=== PATIENT | male | born 1950 | race Caucasian/White ===

== ENCOUNTER 2018-05-10 02:00 | Outpatient (CLI) | payer MEDICARE, BC, SELFPAY ==
[2018-05-10 11:30] LABS: COMMENT (LAB VIEW ONLY) 64.47 mg/dL; Microalb ug/mg Crea 490.5 ug/mg Cr
== END 2018-05-10 02:20 ==
PROVIDERS: PCP Emergency Medicine; Visit Provider Emergency Medicine
DX: E78.5 Hyperlipidemia, unspecified (principal); E11.9 Type 2 diabetes mellitus without complications
CPT/HCPCS: 82043; 82570; 83036

== ENCOUNTER 2019-03-20 09:04 | Outpatient (CLI) | payer MEDICARE, BC, SELFPAY ==
[2019-03-20 11:13] LABS: Hemoglobin A1C 7.6 % (4.5-6.2)
[2019-03-21 10:30] LABS: PSA, Diagnostic 3.1 ng/ml (0-4.5)
== END 2019-03-20 09:24 ==
PROVIDERS: PCP Emergency Medicine; Visit Provider Emergency Medicine
DX: C61 Malignant neoplasm of prostate (principal); N13.8 Other obstructive and reflux uropathy; N40.1 Benign prostatic hyperplasia with lower urinary tract symptoms; E11.9 Type 2 diabetes mellitus without complications
CPT/HCPCS: 36415; 83036; 84153

== ENCOUNTER → 2019-03-29 13:16 | Outpatient (BNVA) | payer MEDICARE, BC, SELFPAY | PROVIDERS: PCP Emergency Medicine; Referring Provider Emergency Medicine; Visit Provider Nurse Practitioner Gerontology | DX: N40.1 Benign prostatic hyperplasia with lower urinary tract symptoms (principal); N13.8 Other obstructive and reflux uropathy; R39.11 Hesitancy of micturition; R33.9 Retention of urine, unspecified; E11.9 Type 2 diabetes mellitus without complications | CPT/HCPCS: 51798; 81003; 99204; 99215 ==

== ENCOUNTER 2019-04-03 00:24 | Outpatient (CLI) | payer MEDICARE, BC, SELFPAY ==
--- NOTE | 2019-04-03 07:02 | DI.US_ITS ---
SYMPTOMS/DIAGNOSIS: PROSTATE NODULE, RIGHT MID POSTERIOR LOBE, N40.2 ULTRASOUND GUIDANCE FOR PROSTATE BIOPSY: Ultrasound guidance was provided for prostate biopsy performed by Dr. Chaudhry. Please see Dr. Chaudhry's procedure note. Estimated prostatic volume is 38 cc.
--- NOTE | 2019-04-03 14:40 | PROST_PTH ---
PATIENT: Sanford Brownlee LOC: [facility] U#:[id number] AGE/SX: 69/M ROOM: RE04/03/[address]: Nikia Cristina DNP : 1950 BED: DIS: 04/03/2019 SPEC #: [id number] RECD: 04/03/19 17:11 STATUS: TORSTEN VELA #: [id number] JORDAN: 04/03/19 14:[address]: Ricardo Chaudhry DEPT: Surgical Specimen RECD BY: Homa Saenz ENTERED: 04/03/19 17:14 SP TYPE: PROST OTHR DR: DO Nikia Mccullough DNP Tissues: 1 - PROSTATE NEEDLE BIOPSY 2 - PROSTATE NEEDLE BIOPSY 3 - PROSTATE NEEDLE BIOPSY 4 - PROSTATE NEEDLE BIOPSY 5 - PROSTATE NEEDLE BIOPSY 6 - PROSTATE NEEDLE BIOPSY 7 - PROSTATE NEEDLE BIOPSY 8 - PROSTATE NEEDLE BIOPSY 9 - PROSTATE NEEDLE BIOPSY 10 - PROSTATE NEEDLE BIOPSY 11 - PROSTATE NEEDLE BIOPSY 12 - PROSTATE NEEDLE BIOPSY Procedures: GROSS AND MICRO LEVEL 4 IMMUNOPEROXIDASE STAIN Comments: [id number]
--- NOTE | 2019-04-03 16:17 | ROE_ITS ---
DATE OF PROCEDURE: April 03, 2019 PREPROCEDURE DIAGNOSIS: Prostate nodule. POSTPROCEDURE DIAGNOSIS: Prostate nodule with biopsies pending. PROCEDURE: Ultrasound-guided biopsy of the prostate. SURGEON: Ricardo Chaudhry M.D. ANESTHESIA: Local. COMPLICATIONS: None. HISTORY: This is a 69-year-old gentleman who was identified as having a nodule on the right side of his prostate when he underwent digital rectal exam. His PSA level is 3.1 ng/mL. He presents now for ultrasound-guided biopsy of the prostate. PROCEDURE: The patient was given a mechanical and antibiotic bowel prep. He was brought to the [facility] o[facility] on 04/03/19. He was placed in the left lateral position. Transrectal imaging of the prostate was performed using a variable hertz transducer. The prostate was imaged in transverse and longitudinal planes. The prostatic volume was calculated at 37 cc's. A number of calcifications were seen in the transiti on zone. No specific hypoechoic areas were seen in the peripheral zone. A total of twelve laterally-directed biopsies were then taken using ultrasound guidance. Each of the biopsies was labeled and sent to Pathology for permanent section. The patient tolerated this procedure well. There were no complications and minimal blood loss.
== END 2019-04-03 00:44 ==
PROVIDERS: PCP Emergency Medicine; Visit Provider Nurse Practitioner Gerontology
DX: N40.2 Nodular prostate without lower urinary tract symptoms (principal); C61 Malignant neoplasm of prostate
CPT/HCPCS: 55700; 76942; 76872; 88305; 88361

== ENCOUNTER → 2019-04-13 13:24 | Outpatient (BNVA) | payer MEDICARE, BC, SELFPAY | PROVIDERS: PCP Emergency Medicine; Visit Provider Urology | DX: C61 Malignant neoplasm of prostate (principal) | CPT/HCPCS: 99214 ==

== ENCOUNTER 2019-04-20 01:31 | Outpatient (CLI) | payer MEDICARE, BC, SELFPAY ==
--- NOTE | 2019-04-20 10:55 | DI.NM_ITS ---
EXAM: NM BONE SCAN WHOLE BODY GRP CLINICAL HISTORY: baseline study for new dx prostate cancer C61. TECHNIQUE: 25 millicuries of technetium 99 labeled methylene diphosphonate was injected intravenousl y with delayed imaging of the whole body. COMPARISON: No exams were available for comparison FINDINGS: There are a couple of areas of minimally increased uptake in the cervical spine, which could be assoc iated with degenerative change. Increased uptake also seen associated with sternoclavicular joints b ilaterally, presumably on a degenerative basis. No other significant area of increased bony uptake s een. IMPRESSION: No specific evidence of metastatic disease. Radiographs of the cervical spine may be obtained to conf irm cervical spine DJD if clinically appropriate.
== END 2019-04-20 01:51 ==
PROVIDERS: PCP Emergency Medicine; Visit Provider Urology
DX: C61 Malignant neoplasm of prostate (principal); Z12.89 Encounter for screening for malignant neoplasm of other sites
CPT/HCPCS: 78306

== ENCOUNTER → 2019-05-24 12:50 | Outpatient (BNVA) | payer MEDICARE, BC, SELFPAY | PROVIDERS: PCP Emergency Medicine; Referring Provider Emergency Medicine; Visit Provider Urology | DX: C61 Malignant neoplasm of prostate (principal) | CPT/HCPCS: 99214 ==

== ENCOUNTER 2020-01-02 22:25 | Outpatient (REF) | payer MEDICARE, BC, SELFPAY ==
[2020-01-04 10:12] LABS: Lyme Ab w Rflx to Lyme Confirm Negative (Negative)
[2020-01-08 15:17] LABS: Anaplasma phagocytophilum Negative (Negative); B. miyamotoi PCR Negative (Negative); Babesia divergens/MO-1 Negative (Negative); Babesia duncani Negative (Negative); Babesia microti Negative (Negative); Ehrlichia chaffeensis Negative (Negative); Ehrlichia ewingii/canis Negative (Negative); Ehrlichia muris eauclairensis Negative (Negative)
== END 2020-01-02 22:45 ==
LOC: LBN 22:25
PROVIDERS: PCP Emergency Medicine; Visit Provider Nurse Practitioner Family
DX: W57.XXXA Bitten or stung by nonvenomous insect and other nonvenomous arthropods, initial encounter (principal); T14.8XXA Other injury of unspecified body region, initial encounter
CPT/HCPCS: 87798; 86618

== ENCOUNTER 2020-01-30 03:09 | Outpatient (CLI) | payer MEDICARE, BC, SELFPAY ==
[2020-01-30 11:29] LABS: Hemoglobin A1C 7.6 % (3.8-5.6)
[2020-01-30 12:05] LABS: Anion Gap 6.7 mmol/L (3-11); BUN 46 mg/dL (7-18); CO2 27.3 mmol/L (21.0-32.0); Calcium 9.2 mg/dL (8.5-10.1); Chloride 109 mmol/L (98-107); Estimated GFR 31.38 (mL/min/1.73m2); Glucose 229 mg/dL (74-106); Sodium 143 mmol/L (136-145)
[2020-01-30 12:11] LABS: Potassium 6.4 mmol/L (3.5-5.1)
[2020-01-30 15:41] LABS: CREATININE 2.07 mg/dL (0.70-1.30); Potassium 5.4 mmol/L (3.5-5.1)
== END 2020-01-30 03:29 ==
PROVIDERS: PCP Emergency Medicine; Visit Provider Emergency Medicine
DX: E11.9 Type 2 diabetes mellitus without complications (principal); I10 Essential (primary) hypertension; E87.5 Hyperkalemia
CPT/HCPCS: 36415; 80048; 82565; 83036; 84132

== ENCOUNTER → 2020-02-06 10:43 | Outpatient (BNVA) | payer MEDICARE, BC, SELFPAY | PROVIDERS: PCP Emergency Medicine; Referring Provider Emergency Medicine; Visit Provider Orthopaedic Surgery | DX: M65.4 Radial styloid tenosynovitis [de Quervain] (principal); M25.532 Pain in left wrist | CPT/HCPCS: 99203; 99214; L3809 ==

== ENCOUNTER → 2020-03-05 09:23 | Outpatient (BNVA) | payer MEDICARE, BC, SELFPAY | PROVIDERS: PCP Emergency Medicine; Referring Provider Emergency Medicine; Visit Provider Orthopaedic Surgery | DX: M65.4 Radial styloid tenosynovitis [de Quervain] (principal) | CPT/HCPCS: 99213 ==

== ENCOUNTER 2020-08-13 19:36 | Outpatient (REF) | payer MEDICARE, SELFPAY ==
[2020-08-13 14:11] LABS: Anion Gap 9.7 mmol/L (3-11); BUN 42 mg/dL (7-18); CO2 23.3 mmol/L (21.0-32.0); CREATININE 2.24 mg/dL (0.70-1.30); Calcium 8.5 mg/dL (8.5-10.1); Chloride 106 mmol/L (98-107); Estimated GFR 29.13 (mL/min/1.73m2); Glucose 265 mg/dL (74-106); Potassium 5.1 mmol/L (3.5-5.1); Sodium 139 mmol/L (136-145)
[2020-08-13 14:36] LABS: Hemoglobin A1C 7.4 % (<5.7)
== END 2020-08-13 19:56 ==
LOC: LBN 19:36
PROVIDERS: PCP Emergency Medicine; Visit Provider Emergency Medicine
DX: E11.9 Type 2 diabetes mellitus without complications (principal); I10 Essential (primary) hypertension
CPT/HCPCS: 80048; 83036

== ENCOUNTER 2020-09-01 01:46 | Outpatient (CLI) | payer MEDICARE, SELFPAY ==
--- NOTE | 2020-09-01 07:30 | DI.US_ITS ---
EXAM: US RENAL CLINICAL HISTORY: CHRONIC KIDNEY DISEASE,STAGE 3,N18.30. TECHNIQUE: Kunz scale, color and spectral Doppler were used. COMPARISON: US ABDOMEN ULTRASOUND (P) from 03/28/2015 US US prostate biopsy from 04/03/2019 FINDINGS: Renal size in cm: Right: 10.9. Left: 10.3. Echogenicity: Normal. Hydronephrosis: No. Cyst or mass: There are 2 simple cysts seen in the left kidney. The larger measures 0.7 x 0.9 x 1.1 cm. The smaller measures 0.9 x 0.7 x 0.9 cm. Nephrolithiasis: There is an echogenic focus in the upper pole which may represent nonobstructing sto ne. Other findings: None. Bladder:There is diffuse bladder wall thickening. This may in part be due to the decreased distensio n. Other etiologies include chronic bladder outlet obstruction, inflammatory or infectious cystitis. Please correlate clinically. Ureteral jets: Right: Visualized and unremarkable. Left: Visualized and unremarkable. Prevoid vol:34 cc Postvoid vol:7 cc Prostate: 44 cc Renal color flow: Symmetric and within normal limits. IMPRESSION: 1. Two simple left renal cysts. 2. No hydronephrosis. Possible left nephrolithiasis. 3. Enlarged prostate gland. 4. Diffuse urinary bladder wall thickening as described above. While this may be due to underdistent ion, other etiologies including chronic bladder outlet obstruction, inflammatory or infectious cystit is may be considered. Please correlate clinically. DATA REPOSITORY:
== END 2020-09-01 01:47 | disposition home or self-care (01) ==
LOC: DI 01:46
PROVIDERS: PCP Emergency Medicine; Visit Provider Emergency Medicine
DX: N18.30 Chronic kidney disease, stage 3 unspecified (principal); N28.1 Cyst of kidney, acquired; N40.0 Benign prostatic hyperplasia without lower urinary tract symptoms
CPT/HCPCS: 76770

== ENCOUNTER 2020-09-01 02:43 | Outpatient (CLI) | payer MEDICARE, SELFPAY ==
[2020-09-01 11:03] LABS: Bilirubin Negative (Negative); Blood Trace-intact (Negative); Clarity Clear (Clear); Glucose Negative (Negative); Ketones Negative (Negative); Leukocyte Esterase Negative (Negative); Nitrite Negative (Negative); Specific Gravity >= 1.030 (1.005-1.025); Urobilinogen 0.2 EU/dL (Up TO 0.2); pH 5.5 (5-8)
[2020-09-01 11:06] LABS: C-Reactive Protein 0.84 mg/dL (0.0-0.3)
[2020-09-01 11:15] LABS: Bacteria Few HPF (Negative); C & S Indicated? Yes; Crystals Few Amorphous HPF (Negative); Epithelial Cells Negative HPF (Negative); Mucus Trace (Negative); Other Cells Rare Renal (Negative)
[2020-09-01 11:44] LABS: HCT 37.7 % (40.0-50.0); HGB 12.3 g/dL (13.5-17.5); MCH 31.3 pg (27.0-33.0); MCHC 32.6 % (32.0-36.0); MCV 95.9 fL (80-95); MPV 10.7 fL (8.0-11.0); Platelet Count 149 10^3/uL (130-400); RBC 3.93 10^6/uL (4.36-5.78); RDW 12.9 % (11.8-14.1); WBC 7.72 10^3/uL (4.4-10.8)
[2020-09-01 11:50] LABS: COMMENT (LAB VIEW ONLY) 182.01 mg/dL
[2020-09-01 18:14] LABS: ESR 28 mm/hr (<or=20)
== END 2020-09-01 02:44 | disposition home or self-care (01) ==
PROVIDERS: PCP Emergency Medicine; Visit Provider Emergency Medicine
DX: N18.30 Chronic kidney disease, stage 3 unspecified (principal); R30.0 Dysuria
CPT/HCPCS: 36415; 85027; 85652; 81003; 81015; 82043; 82570; 86140; 87086

== ENCOUNTER 2021-02-11 02:27 | Outpatient (CLI) | payer MEDICARE, SELFPAY ==
--- NOTE | 2021-02-11 09:11 | DI.RAD_ITS ---
Exam(s) XR CHEST 2V PA LATERAL EXAM: XR CHEST 2V PA LATERAL CLINICAL HISTORY: fatigue,r53.83. TECHNIQUE: 2D digital imaging was performed. COMPARISON: CR CHEST 2 VIEWS PA,LAT from 10/08/2015 FINDINGS: Heart size is normal. The mediastinum is not widened. Is calcified granuloma in the lateral left lung again noted, unchanged. Tenting of the medial right hemidiaphragm is unchanged. No infiltrates nor pleural effusions. No pneumothorax IMPRESSION: No acute pulmonary findings.Calcified granuloma in the left lung is unchanged from 2016. DATA REPOSITORY: RADIATION DOSE DELIVERED:
== END 2021-02-11 02:47 ==
PROVIDERS: PCP Emergency Medicine; Visit Provider Emergency Medicine
DX: J84.10 Pulmonary fibrosis, unspecified (principal); R53.83 Other fatigue
CPT/HCPCS: 71046

== ENCOUNTER 2021-02-11 02:58 | Outpatient (CLI) | payer MEDICARE, SELFPAY ==
[2021-02-11 12:51] LABS: Abs Immature Grans 0.03 10^3/uL (0.0-0.06); Absolute Basophil Count 0.08 10^3/uL (0.0-0.2); Absolute Lymphocyte Count 1.54 10^3/uL (1.2-3.4); Absolute Monocyte Count 0.52 10^3/uL (0.1-0.8); Absolute Neutrophil Count 4.29 10^3/uL (1.2-6.7); Basophils % 1.2; Eosinophils % 5.8; HCT 34.8 % (40.0-50.0); HGB 10.8 g/dL (13.5-17.5); Immature Grans % 0.4; Lymphocytes % 22.4; MCH 30.9 pg (27.0-33.0); MCV 99.7 fL (80-95); MPV 10.7 fL (8.0-11.0); Monocytes % 7.6; Neutrophils % 62.6; Nucleated RBC 0 %; Platelet Count 173 10^3/uL (130-400); RBC 3.49 10^6/uL (4.36-5.78); RDW 13.1 % (11.8-14.1); RDW-SD 47.4 fL; WBC 6.86 10^3/uL (4.4-10.8)
[2021-02-11 13:03] LABS: Hemoglobin A1C 7.9 % (<5.7)
[2021-02-11 13:24] LABS: ALT 33 U/L (16-63); AST 18 U/L (15-37); Albumin 3.3 g/dL (3.4-5.0); Alkaline Phosphatase 137 U/L (46-116); BUN 40 mg/dL (7-18); Bilirubin, Total 0.3 mg/dL (0.2-1.0); C-Reactive Protein 0.45 mg/dL (0.0-0.3); CREATININE 2.2 mg/dL (0.70-1.30); Calcium 8.6 mg/dL (8.5-10.1); Chloride 110 mmol/L (98-107); Estimated GFR 29.65 (mL/min/1.73m2); Glucose 200 mg/dL (74-106); Potassium 5.1 mmol/L (3.5-5.1); Sodium 145 mmol/L (136-145); TSH 1.43 uIU/mL (0.36-3.74); Total Protein 6.1 g/dL (6.4-8.2)
[2021-02-12 10:19] LABS: Lyme Ab w Rflx to Lyme Confirm Negative (Negative)
== END 2021-02-11 02:59 | disposition home or self-care (01) ==
LOC: LOS 02:58
PROVIDERS: PCP Emergency Medicine; Visit Provider Emergency Medicine
DX: R53.83 Other fatigue (principal); E11.9 Type 2 diabetes mellitus without complications; E03.9 Hypothyroidism, unspecified; M25.59 Pain in other specified joint
CPT/HCPCS: 36415; 80053; 83036; 84443; 85025; 86140; 86618

== ENCOUNTER 2021-02-13 11:46 | Outpatient (CLI) | payer MEDICARE, SELFPAY ==
[2021-02-13 16:43] LABS: Iron 59 ug/dL (65-175); Total Iron Binding Capacity 226 ug/dL (250-450); Transferrin Sat 26 % (20-55)
[2021-02-13 17:10] LABS: Ferritin 144 ng/mL (26-388); Vitamin B12 452 pg/mL (193-986)
[2021-02-13 17:14] LABS: Folate > 20.0 ng/mL (8.6-20.0)
== END 2021-02-13 11:47 | disposition home or self-care (01) ==
LOC: LBO 11:46
PROVIDERS: PCP Emergency Medicine; Visit Provider Emergency Medicine
DX: D64.9 Anemia, unspecified (principal)
CPT/HCPCS: 36415; 82607; 82728; 82746; 83540; 83550

== ENCOUNTER → 2021-03-17 07:59 | Outpatient (BNVA) | payer MEDICARE, SELFPAY | PROVIDERS: PCP Emergency Medicine; Referring Provider Emergency Medicine; Visit Provider Surgery | DX: R01.1 Cardiac murmur, unspecified (principal); R05 Cough; D50.9 Iron deficiency anemia, unspecified; Z86.010 Personal history of colon polyps; E11.22 Type 2 diabetes mellitus with diabetic chronic kidney disease; N18.2 Chronic kidney disease, stage 2 (mild); I10 Essential (primary) hypertension | CPT/HCPCS: 99203; 99214 ==

== ENCOUNTER 2021-04-07 07:42 | Outpatient (CLI) | payer MEDICARE, SELFPAY ==
[2021-04-07] MEDS: Albuterol HFA 18 GM 200 PUFF INH IH (14:15)
[2021-04-07] MEDS: Inhaler, Assist Device 1 EACH MC (14:16)
--- NOTE | 2021-04-08 09:56 | W.PFT ---
Date of service: 04/07/21 Time of Service: 12:58 Pulmonary Function Test Result Requesting Provider Duchene Indications: Chronic cough Interpretation Spirometry: There is no airflow limitation. There is a significant bronchodilator effect. Lung Volumes: Lung volumes are normal. Diffusion Capacity: The diffusion is normal. Airway Pressure: Airways resistance is normal. Impression Normal pulmonary function tests with a significant bronchodilator effect. Clinical Correlation therefore is recommended.
== END 2021-04-07 07:43 | disposition home or self-care (01) ==
LOC: RT 07:43
PROVIDERS: PCP Emergency Medicine; Visit Provider Student in an Organized Health Care Education/Training Program
DX: R05 Cough (principal)
CPT/HCPCS: 94060; 94726; 94729

== ENCOUNTER 2021-04-10 01:23 | Outpatient (CLI) | payer MEDICARE, SELFPAY ==
[2021-04-10 13:25] LABS: Source Nasal/Nares
[2021-04-10 16:55] LABS: COVID-19 PCR Negative (Negative)
== END 2021-04-10 01:24 | disposition home or self-care (01) ==
LOC: LBO 01:23
PROVIDERS: Surgery; PCP Emergency Medicine; Visit Provider Surgery
DX: Z20.822 Contact with and (suspected) exposure to COVID-19 (principal)
CPT/HCPCS: 87635

== ENCOUNTER 2021-04-13 06:15 | Day surgery (SDC) | payer MEDICARE, SELFPAY ==
[2021-04-13 06:21] VITALS: BP 164/72; PULSE 55; RESP 16; TEMP 36.1; O2SAT 97
--- NOTE | 2021-04-13 06:39 | W.COLOREPORT ---
Colonoscopy Report Date of procedure: 04/13/21 Pre-op diagnosis general: Anemia, Hx of polyps Post-op diagnosis procedure note: same (multiple polyps) Procedure: Colonoscopy with polypectomy Surgeon: Olamide Garvin Anesthesia Type: General:No Airway (Katie Urrutia, NELLI) Estimated blood loss (mL): 5 Pathology: other (Cecal polyps, ascending polyps, Transverse and descending polyps) Complications: None Disposition: same day Indications: Mr. Brownlee is a pleasant 71-year-old gentleman who was sent to the office by his primary care physician for a colonoscopy. His last colonoscopy was in 2014 and at that time he was noted to have 2 tubular adenomas. He was due for colonoscopy last year. He has not had any melena or hematochezia. He denies abdominal pain or family history of colon cancer. His stools are looser but that started after starting a liquid vitamin. He does feel fatigued and recent labs show that he is mildly anemic. He denies shortness of breath. He does complain of a chronic cough that has been persistent. He has had a chest x-ray which was normal. He states every time he takes a deep breath he now has a coughing fit it is mostly dry but sometimes he does bring up some clear sputum. His past medical history is significant for stage III kidney disease, diabetes, hypertension. His hypertension was well controlled but over the last month and a half it has not been as well controlled with his systolic blood pressure being up in the 170s. His diastolic pressure seems okay in the 70s. He denies any chest pain or shortness of breath with activity. Current symptoms: Reports fatigue; Denies hematochezia, melena, hematemesis or dyspnea Low iron diet: Yes Bleeding: no bleeding Amount of bleeding: none Pain quality: no pain Pertinent history: Reports iron deficiency; Denies NSAID usage, diverticulosis and unitentional weight loss Previous testing: colonoscopy (2014- tubular adenomas x2) Associated symptoms: Denies fever(s) Prep: Miralax/Dulcolax Procedure Start Time: 07:22 Procedure End Time: 08:11 Retraction Time: 39 minutes Findings: multiple sessile polyps Procedure Description: After informed consent was obtained the patient was taken to the procedure room and placed in a left decubitous position. Monitors were applied and a time out was done. The patients name, date of , procedure, allergies to medications and metal in their body was reviewed. The patient was then sedated. Once sedated and comfortable a rectal exam was done. External exam was normal. Internal exam revealed a normal sphincter tone and no palpable masses. The prostate felt enlarged but smooth. The scope was then introduced and retro-flexed. No internal hemorrhoids, polyps or masses were identified on retro-flexion. The scope was then advanced to the cecum without difficulty. The ileocecal vlave and appendiceal orifice were identified. The prep was adequate. The scope was then slowly retracted over 39 minutes back into the rectum. Polyps were removed with hot snare in the cecum x2, transverse polyp x1 and descending polyp x1, and with cold forceps in the cecum x1, Ascending polyps x3, transverse polyp x2. There was no diverticulosis noted. The scope was removed and the patient was woken up and taken back to Same day surgery in stable condition. The patient tolerated the procedure well and there were no immediate complications. Follow up: The patient should follow up in 3 years unless they develop changes in bowel habits or other new gastrointestinal complaints.
--- NOTE | 2021-04-13 06:40 | W.PM.DSUDISC ---
Discharge Plan Disposition Patient Disposition: HOME Condition: Good Discharge Details Reason For Visit: Colonoscopy Attending Provider: Olamide Garvin Primary Care Provider: Sergio Herring Home Meds and New Rx's Prescriptions: Continued (DME) lancets [FreeStyle Lancets] 28 gauge misc 1 ea Intradermal DAILY Qty: 90 RF: 4 losartan 50 mg tablet 100 mg PO DAILY Qty: 90 RF: 3 spironolactone 25 mg tablet 25 mg PO DAILY Qty: 90 RF: 3 tamsulosin 0.4 mg capsule 0.4 mg PO QHS RF: 0 albuterol sulfate [Ventolin HFA] 90 mcg/actuation HFA aerosol inhaler 2 puff inhalation QID PRN (Reason: shortness of breath or wheezing) Qty: 8.5 RF: 5 (DME) FreeStyle Lite Strips Strip 1 ea Miscellaneous DAILY Qty: 90 RF: 4 atorvastatin 40 mg tablet 40 mg PO DAILY Qty: 90 RF: 3 carbamazepine 100 mg tablet,chewable 50 mg PO BID Qty: 180 RF: 4 amlodipine 5 mg tablet 10 mg PO DAILY Qty: 90 RF: 3 Vitamin C 1,000 MG tablet extended release 1 tab PO DAILY RF: 0 Antacid Extra-Strength 1 EACH tablet 1 ea PO BID RF: 0 aspirin [Ecotrin Low Strength] 81 MG tablet,delayed release (DR/EC) 81 mg PO DAILY RF: 0 glimepiride 4 mg tablet 4 mg PO BID Qty: 180 RF: 3 alfuzosin 10 mg tablet extended release 24 hr 10 mg PO DAILY Qty: 90 RF: 3 metformin 500 mg tablet 500 mg PO BID Qty: 180 RF: 3 carbamazepine [Tegretol] 200 mg tablet 200 mg PO BID Qty: 180 RF: 4 Discontinued bisacodyl [Dulcolax (bisacodyl)] 5 mg tablet,delayed release (DR/EC) 5 mg PO ONCE Qty: 4 RF: 0 polyethylene glycol 3350 17 gram powder in packet 255 g PO DAILY Qty: 15 RF: 0 Discharge Instructions Instructions: Colorectal Polyps (DC) Additional Instructions: Findings: 11 polyps Follow up: 3 years Please call if you develop: fevers >101.5 Nausea or Vomiting Abdominal pain that is not transient Rectal bleeding that is more then a tbsp A hard abdomen and inability to pass gas DAY SURGERY UNIT POST ENDOSCOPY INSTRUCTIONS Instructions for everyone who is given Anesthesia: For your safety, please do the following for the next 24 Hours: a. Do not drive or operate dangerous equipment b. Do not drink alcohol beverages or use any recreational drugs for the first 24 hours or while taking pain medications. The medications in your body may have a reaction that can be dangerous. c. Do not make any important decisions or sign any important papers 1. Generally there are no restrictions on your activity after a day or so has gone by, but you may feel a bit fatigued for a few days. 2. After you arrive home you may have a light meal and return to a normal diet as you can tolerate it without feeling sick to your stomach. 3. After surgery, you may feel pain or discomfort. This should be only transient, but if it persists please contact your doctor. 4. If there are any questions regarding the findings of your procedure, please feel free to contact your doctor. 6. If you are unable to contact your doctor with a problem, contact the hospital at [phone]. 7. Continue all your regular medications unless directed otherwise. I understand the above instructions and have no questions. Signature of Patient or Responsible Adult Escort Date/Time Name of Responsible Adult Escort Signature of Nurse Date/Time Stand Alone Forms: Anesthesia Discharge Arlene Hdz (RACHAEL) Activity:: Activity as Tolerated Diet:: As Tolerated Discharge Orders Discharge Orders: Discharge Order (Routine); Ordered 04/13/21 Ordered By: Olamide Garvin
--- NOTE | 2021-04-13 06:53 | ANES.PREOP_ITS ---
General Info Date of Service Date Performed: 04/13/21 Height: 5 ft 5 in Weight: 87.5 kg Body Mass Index (BMI): 32.1 Surgical Procedure: Operation Date: 04/13/21 07:35 Proposed Procedures Side Surgeon p Colonoscopy Olamide Garvin MD Meds Allergies and Home Medications Allergies Allergy/AdvReac Type Severity Reaction Status Date / Time No Known Allergies Allergy Verified 04/13/21 06:31 Home Medication Medication Instructions Recorded Antacid Extra-Strength 1 ea PO BID 11/30/12 Vitamin C 1 tab PO DAILY 11/30/12 aspirin [Ecotrin Low Strength] 81 mg PO DAILY tab-cap 11/30/12 lancets 28 gauge #90 each 07/17/19 blood sugar diagnostic #90 strip 08/13/20 glimepiride 4 mg tablet 4 mg PO BID #180 tab 12/02/20 alfuzosin 10 mg tablet,extended 10 mg PO DAILY #90 tab-cap 01/14/21 release 24 hr metformin 500 mg tablet 500 mg PO BID #180 tab 01/14/21 carbamazepine 200 mg tablet 200 mg PO BID #180 tab 02/04/21 atorvastatin 40 mg tablet 40 mg PO DAILY #90 tab 02/10/21 carbamazepine 100 mg chewable 50 mg PO BID #180 tab-cap 02/10/21 tablet amlodipine 5 mg tablet 10 mg PO DAILY #90 tab 03/03/21 bisacodyl 5 mg tablet,delayed 5 mg PO ONCE #4 tab 03/31/21 release losartan 50 mg tablet 100 mg PO DAILY #90 tab 03/31/21 polyethylene glycol 3350 17 gram 255 g PO DAILY #15 ea 03/31/21 oral powder packet spironolactone 25 mg tablet 25 mg PO DAILY #90 tab 03/31/21 albuterol sulfate 90 mcg/actuation 2 puff INHALATION QID PRN #8.5 g 04/06/21 aerosol inhaler tamsulosin 0.4 mg capsule 0.4 mg PO QHS 04/06/21 Current Visit Medications: Current Medications Generic Name Dose Route Start Last Admin Trade Name Freq PRN Reason Stop Dose Admin Hyoscyamine Sulfate 0.125 mg 04/13/21 06:41 Hyoscyamine 0.125 Mg Sl/Oral/Chew SL DIRECTED PRN Sodium Chloride 1,000 mls @ 80 mls/hr 04/13/21 06:00 Saline 1000ml Bag IV INFUSION [facility] IV Miscellaneous Supplies 1 each 04/13/21 06:00 Iv Access IV 05/10/21 23:59 DIRECTED KENIA Ondansetron HCl 4 mg 04/13/21 06:41 Ondansetron 4 Mg/2 Ml Vial IVP Q4H PRN PRN Nausea / Vomiting Sodium Chloride 0 ml 04/13/21 06:00 Normal Saline Flush 10 Ml Syr IV 05/10/21 23:59 PRN PRN Sodium Chloride 0 ml 04/13/21 06:00 Normal Saline 10 Ml Vial IJ 05/10/21 23:59 DIRECTED PRN Sterile Water 0 ml 04/13/21 06:00 Water,Injection,Sterile 10 Ml Vial IJ 05/10/21 23:59 DIRECTED PRN PFSH Active Problems Active Problems: Problem Status Onset Code Incipient cataract 09/14/12 H26.9 Lumbago M54.5 Myopia 09/14/12 H52.10 Open angle with borderline findings 09/14/12 Renal insufficiency, mild N28.9 Status post laminectomy Z98.890 Newly recognized murmur R01.1 Persistent cough for 3 weeks or longer R05 Chronic cough R05 Chewing tobacco nicotine dependence F17.220 Trigger finger of left hand M65.30 Essential hypertension 07/31/13 I10 Type II diabetes mellitus, uncontrolled E11.65 Carpal tunnel syndrome 10/12/11 G56.00 Fatty pancreas 07/04/15 K86.89 Gout M10.9 Hyperlipidemia E78.5 Inguinal ring laxity K40.90 Kidney stone N20.0 Rosacea L71.9 Sciatica M54.30 Seizure disorder G40.909 Smoker F17.200 Spinal stenosis M48.00 Trigger finger, right index finger 01/19/17 M65.321 Tubular adenoma of colon D12.6 NPDR (nonproliferative diabetic retinopathy) ~11/08/18 E11.3299 Prostate nodule N40.2 BPH loc w urin obs/LUTS N40.1 Anemia D64.9 Fatigue R53.83 CKD (chronic kidney disease) stage 3, GFR 30-59 ml/min N18.30 De Quervain's tenosynovitis, left ~11/2019 M65.4 Left wrist pain M25.532 Prostate cancer C61 Medical History Medical History Anemia BPH loc w urin obs/LUTS Carpal tunnel syndrome (10/12/11) CKD (chronic kidney disease) stage 3, GFR 30-59 ml/min De Quervain's tenosynovitis, left (~11/2019) Essential hypertension (07/31/13) Fatigue Fatty pancreas (07/04/15) Gout Hyperlipidemia Inguinal ring laxity LEFT Kidney stone recurrently on the left at least 4 times. Last one 2004 Left wrist pain NPDR (nonproliferative diabetic retinopathy) (~11/08/18) 11/08/18 [facility]; MILD IN LEFT EYE-[facility] 11/24/20 [facility]; MILD B/L-KB Prostate cancer Prostate nodule Rosacea Sciatica Seizure disorder Pt. states he f/u with Dr. Herring hasn't had a seizure in 20+ years Smoker chews tobacco Spinal stenosis L5 disc and spinal stenosis Trigger finger of left hand Trigger finger, right index finger (01/19/17) Tubular adenoma of colon 08/09/14; DR. ROSARIO; TUBULAR ADENOMA X 2 Type II diabetes mellitus, uncontrolled Surgical History Surgical History Colonoscopy - [facility] 2003;2006;2014 laminectomy Tobacco Smoking/Tobacco Use Status: Former Tobacco Use Smokeless tobacco user: chewing tobacco Alcohol Alcohol Intake: never Substance Use Substance use: Never Substance use type: does not use Details: chews tobacco daily Vital Signs and Lab Results Vital Signs Most Recent Vital Signs in EMR: Most Recent Vital Signs Temp Pulse Resp BP Pulse Ox 36.1 C L 55 L 16 164/72 H 97 04/13/21 06:21 04/13/21 06:21 04/13/21 06:21 04/13/21 06:21 04/13/21 06:21 Lab Results Blood Type / Crossmatch: No Data to Display Complete Blood Count: No Data to Display Complete Metabolic Panel: No Data to Display Liver Function Panel: No Data to Display Coagulation Panel: No Data to Display Cardiac Panel: No Data to Display Arterial Blood Gas: No Data to Display Venous Blood Gas: No Data to Display Pancreas Panel: No Data to Display Thyroid Panel: No Data to Display Infectious Disease: Coronavirus (COVID-19)(PCR) Negative (Negative) 04/10/21 10:48 04/10/21 Coronavirus 2019 Source Nasal/Nares 04/10/21 10:48 04/10/21 Blood Cultures: No Data to Display Toxicology Panel: No Data to Display Imaging and Studies Imaging and Studies Pulmonary Function Summary: Impression Normal pulmonary function tests with a significant bronchodilator effect. Clinical Correlation therefore is recommended. 04/08/21 Anesthesia Assessment and Plan Anesthesia History Personal History: No History of Anesthesia Complications Family History: No Family History of Anesthesia Complications Exercise Tolerance Exercise Tolerance: Metabolic Equivalents>4 Pertinent Negatives Pertinent Negatives: No Symptoms of GERD, No Major Cardiovascular Symptoms or Complaints, No History of CVA/TIA and Other (Chronic cough, recently started inhalers) Cardiac & Pulmonary Exam Cardiac Exam: Normal S1/S2 Heart Sounds Pulmonary Exam: Clear Bilateral Breath Sounds Airway Exam Known Difficult Airway: No Mallampati Class: 1 Mouth Opening: Normal (> 3cm) Thyromental Distance: Greater than 3 cm Neck Range of Motion: Full ROM Neck Circumference: Normal Teeth Condition: Normal Dentition ASA Classification ASA Score: ASA 2 Emergency Case?: No NPO Status NPO Status: NPO Clears >2 hours, Solids >8 hours Anesthesia Plan Resuscitation Status: Full Code Anesthesia Technique: General Anesthesia Airway Planned: Natural Airway Monitors Used: Standard Monitors
[2021-04-13] MEDS: Normal Saline 1,000 ML 80 ML IV (06:54)
[2021-04-13 06:57] VITALS: BMI 32.1
--- NOTE | 2021-04-13 07:30 | BOWEL_PTH ---
PATIENT: Sanford Brownlee LOC: [facility] U#:[id number] AGE/SX: 71/M ROOM: RE04/13/[address]: Olamide Garvin MD : 1950 BED: DIS: 04/13/2021 SPEC #: [id number] RECD: 04/13/21 12:42 STATUS: TORSTEN RE #: [id number] JORDAN: 04/13/21 07:[address]: Olamide Garvin DEPT: Surgical Specimen RECD BY: Homa Saenz ENTERED: 04/13/21 12:44 SP TYPE: Bowel OTHR DR: Sergio Herring DO Tissues: 1 - BIOPSY BOWEL 2 - BIOPSY BOWEL 3 - BIOPSY BOWEL 4 - BIOPSY BOWEL Procedures: GROSS AND MICRO LEVEL 4 Comments: [id number]
[2021-04-13 08:22] VITALS: BP 132/58; PULSE 54; RESP 18; TEMP 36.4; O2SAT 96
--- NOTE | 2021-04-13 08:27 | W.ANESPOSTOP ---
Postoperative Evaluation Date, Time and Location Date Performed: 04/13/21 Time Performed: 08:22 Patient Location: Day Surgery Unit Vital Signs Most Recent Imported Vital Signs: Most Recent Vital Signs Temp Pulse Resp BP Pulse Ox 36.4 C L 54 L 18 132/58 L 96 04/13/21 08:22 04/13/21 08:22 04/13/21 08:22 04/13/21 08:22 04/13/21 08:22 Pain Score Most Recent Pain Score: Most Recent Pain Score Pain Level 0 04/13/21 08:22 Assessment Mental Status: Awake (Alert & Oriented to Patient Baseline) Airway and Respiratory Function: Patent airway with normal (patient baseline) respiratory exam Cardiovascular Function: Hemodynamically Stable Hydration Status: Adequately Hydrated Nausea & Vomiting: No Nausea or Vomiting Pain: Pt. Denies Any Pain Peripheral Nerve Block: Patient did not receive a nerve block
[2021-04-13 08:49] VITALS: BP 168/75; PULSE 50; RESP 16; TEMP 36.3; O2SAT 98
== END 2021-04-13 09:05 | disposition home or self-care (01) ==
PROVIDERS: PCP Emergency Medicine; Visit Provider Surgery
PROC: 0DJD8ZZ Inspection of Lower Intestinal Tract, Via Natural or Artificial Opening Endoscopic (ICD-10-PCS; CPT 45378; principal; 2021-04-13 07:30)
DX: Z12.11 Encounter for screening for malignant neoplasm of colon (principal); D64.9 Anemia, unspecified; D12.0 Benign neoplasm of cecum; D12.2 Benign neoplasm of ascending colon; D12.3 Benign neoplasm of transverse colon; D12.4 Benign neoplasm of descending colon; Z86.010 Personal history of colon polyps
CPT/HCPCS: 45385; 45380; 88305; J2001

== ENCOUNTER 2021-04-16 00:49 | Outpatient (CLI) | payer MEDICARE, SELFPAY ==
--- NOTE | 2021-04-16 06:45 | DI.CT_ITS ---
Exam(s) CT CHEST WO EXAM: CT CHEST WO CLINICAL HISTORY: chronic productive cough, concern FOR bronchiectasis,R05. TECHNIQUE: Multi planar reconstructions were performed. CONTRAST MATERIAL: None COMPARISON: CR CHEST 2 VIEWS PA,LAT from 03/27/2015 CR CHEST 2 VIEWS PA,LAT from 03/27/2015 CR XR CHEST 2V PA LATERAL from 02/11/2021 CR XR CHEST 2V PA LATERAL from 02/11/2021 FINDINGS: CHEST: LUNGS: No infiltrates nor pleural effusions. No ominous pulmonary nodules evident in either lung fie ld. The previously described granuloma in the lateral left lung actually corresponds to a focal none xpansile sclerotic density in the anterolateral aspect of the left 5th rib. No other focal rib findi ngs in the field of view of this study. No findings in the trachea and mainstem bronchi. No bronchi ectasis. MEDIASTINUM: There is no obvious hilar nor mediastinal adenopathy. Visualized thyroid unremarkable.No obvious axillary adenopathy CARDIAC: Heart size is normal. There is no pericardial effusion.Caliber of the thoracic aorta is wit hin normal limits. VISUALIZED UPPER ABDOMEN:Visualized adrenals unremarkable. The entire left adrenal gland is not incl uded in the field of view. In the partially visualized superior pole the right kidney there are 2 hy perdense nodules noted. Measure 9 millimeters. Possibly hemorrhagic cysts versus other pathology. Not completely included in the field of view. OSSEOUS: Mild anterior wedging of T12 noted. IMPRESSION: 1. No significant pulmonary findings. No pulmonary nodules, infiltrates nor pleural effusions. No i ntrathoracic adenopathy. 2. The nodule on the recent chest x-ray is actually not in the lateral left lung but corresponds to a nonexpansile sclerotic density in the left 5th rib. This most probably benign given that it was also present on chest x-ray of 2015. 3. Mild anterior wedging of T12 vertebral body is also unchanged from the lateral chest x-ray of 2015 . No acute osseous findings. RADIATION DOSE DELIVERED: 618.6mGy.cm Total DLP DATA REPOSITORY: All CT scans at this facility are submitted to the National Radiology Data Registry (NRDR) Dose Index Registry (DIR) with the [employer] ([employer]). RADIATION OPTIMIZATION: All CT scans at this facility use at least one of these dose optimization te chniques: automated exposure control; mA and/or kV adjustment per patient size (includes targeted exa ms where dose is matched to clinical indication); or iterative reconstruction.
== END 2021-04-16 01:09 ==
PROVIDERS: PCP Emergency Medicine; Visit Provider Student in an Organized Health Care Education/Training Program
DX: R05 Cough (principal)
CPT/HCPCS: 71250

== ENCOUNTER 2021-06-23 03:22 | Outpatient (CLI) | payer MEDICARE, SELFPAY ==
[2021-06-23 12:48] LABS: HCT 33.9 % (40.0-50.0); HGB 10.3 g/dL (13.5-17.5); MCH 30.7 pg (27.0-33.0); MCHC 30.4 % (32.0-36.0); MCV 100.9 fL (80-95); MPV 10.6 fL (8.0-11.0); Neutrophils % 57.7; Platelet Count 163 10^3/uL (130-400); RBC 3.36 10^6/uL (4.36-5.78); RDW-SD 48.2 fL; WBC 7.09 10^3/uL (4.4-10.8)
[2021-06-23 12:49] LABS: Abs Immature Grans 0.03 10^3/uL (0.0-0.06); Absolute Basophil Count 0.09 10^3/uL (0.0-0.2); Absolute Eosinophil Count 0.55 10^3/uL (0.0-0.7); Absolute Lymphocyte Count 1.84 10^3/uL (1.2-3.4); Absolute Monocyte Count 0.48 10^3/uL (0.1-0.8); Basophils % 1.3; Eosinophils % 7.8; Immature Grans % 0.4; Monocytes % 6.8; Nucleated RBC 0 %
[2021-06-23 12:58] LABS: ALT 32 U/L (16-63); AST 17 U/L (15-37); Albumin 3.3 g/dL (3.4-5.0); Alkaline Phosphatase 136 U/L (46-116); BUN 42 mg/dL (7-18); Bilirubin, Total 0.2 mg/dL (0.2-1.0); C-Reactive Protein 0.63 mg/dL (0.0-0.3); CREATININE 2.3 mg/dL (0.70-1.30); Calcium 8.9 mg/dL (8.5-10.1); Chloride 111 mmol/L (98-107); Estimated GFR 28.17 (mL/min/1.73m2); Glucose 116 mg/dL (74-106); Potassium 5.8 mmol/L (3.5-5.1); Sodium 144 mmol/L (136-145); Total Protein 6.1 g/dL (6.4-8.2)
[2021-06-23 13:16] LABS: Hemoglobin A1C 7.2 % (<5.7)
[2021-06-23 13:54] LABS: COMMENT (LAB VIEW ONLY) 87.12 mg/dL
[2021-06-23 22:52] LABS: PSA, Diagnostic 4.8 ng/mL (0.0-6.5)
== END 2021-06-23 03:23 | disposition home or self-care (01) ==
LOC: LOS 03:23
PROVIDERS: PCP Emergency Medicine; Visit Provider Emergency Medicine
DX: E11.9 Type 2 diabetes mellitus without complications; I10 Essential (primary) hypertension; N28.9 Disorder of kidney and ureter, unspecified; D50.9 Iron deficiency anemia, unspecified; C61 Malignant neoplasm of prostate
CPT/HCPCS: 36415; 80053; 82043; 82570; 83036; 84153; 85025; 86140

== ENCOUNTER 2021-06-30 02:49 | Outpatient (CLI) | payer MEDICARE, SELFPAY ==
[2021-06-30 09:58] LABS: Anion Gap 10.5 mmol/L (3-11); BUN 47 mg/dL (7-18); CO2 25.5 mmol/L (21.0-32.0); CREATININE 2.4 mg/dL (0.70-1.30); Calcium 8.9 mg/dL (8.5-10.1); Chloride 110 mmol/L (98-107); Estimated GFR 26.82 (mL/min/1.73m2); Glucose 121 mg/dL (74-106); Sodium 146 mmol/L (136-145)
== END 2021-06-30 02:50 | disposition home or self-care (01) ==
LOC: LBO 02:49
PROVIDERS: PCP Emergency Medicine; Visit Provider Emergency Medicine
DX: I10 Essential (primary) hypertension (principal)
CPT/HCPCS: 36415; 80048

== ENCOUNTER 2021-07-07 02:58 | Outpatient (CLI) | payer MEDICARE, SELFPAY ==
[2021-07-07 10:22] LABS: BUN 54 mg/dL (7-18); CREATININE 2.7 mg/dL (0.70-1.30); Calcium 8.8 mg/dL (8.5-10.1); Chloride 108 mmol/L (98-107); Estimated GFR 23.41 (mL/min/1.73m2); Glucose 146 mg/dL (74-106); Potassium 5.3 mmol/L (3.5-5.1); Sodium 144 mmol/L (136-145)
== END 2021-07-07 02:59 | disposition home or self-care (01) ==
LOC: LBO 02:58
PROVIDERS: PCP Emergency Medicine; Visit Provider Emergency Medicine
DX: I10 Essential (primary) hypertension (principal); E87.5 Hyperkalemia
CPT/HCPCS: 36415; 80048

== ENCOUNTER 2021-07-14 00:46 | Outpatient (CLI) | payer MEDICARE, SELFPAY ==
--- NOTE | 2021-07-14 06:30 | DI.US_ITS ---
Exam(s) US CAROTID EXAM: US CAROTID CLINICAL HISTORY: bruit,R09.89. TECHNIQUE: Ultrasound carotids performed using grayscale, color-flow, and spectral Doppler imaging. COMPARISON: No exams were available for comparison FINDINGS: RIGHT CAROTID ARTERY: Plaque: There is calcific plaque seen in the carotid bulb, proximal ECA and proximal ICA. Velocity elevation: Please see below. LEFT CAROTID ARTERY: Plaque: Calcific plaque is seen in the carotid bulb, proximal ECA and throughout the ICA. Velocity elevation: Please see below. VERTEBRAL ARTERIES: Antegrade flow. Measurements: R Bulb: 110.1cm/s PS / 14.8cm/s ED R CCA: 106.4cm/s PS / 16.7cm/s ED R ECA: 123.4cm/s PS / 12.9cm/s ED R ICA Prox: 145.2cm/s PS /29.6cm/s ED R ICA Mid: 122.1cm/s PS / 37.3cm/s ED R ICA Distal: 135.7cm/s PS /34.7cm/s ED R Vert: 47.6cm/s PS / 9.6cm/s ED R SVR: 1.36 R DVR: 1.77 L Bulb: 143.4cm/s PS /33.5cm/s ED L CCA: 76.8cm/s PS / 14.9cm/s ED L ECA: 208.2cm/s PS /19.8cm/s ED L ICA Prox:134.2cm/s PS / 35.9cm/s ED L ICA Mid: 144.6cm/sPS / 34.7cm/s ED L ICA Distal: 139.8cm/s PS / 34.6cm/s ED L Vert: 63.6cm/s PS / 17.4cm/s ED L SVR: 1.88 L DVR: 2.33 IMPRESSION: Findings of 50-69 percent ICA stenosis bilaterally. Criteria for Carotid Stenosis: Normal: ICA PSV <125 cm/s no plaque or intimal thickening is visible. <50% stenosis: ICA PSV <125 cm/s and plaque or intimal thickening is visible. 50-69% stenosis: ICA PSV is 125-250 cm/s and plaque is visible. >70% stenosis to near occlusion: ICA PSV >250 cm/s with visible plaque and luminal narrowing. DATA REPOSITORY:
== END 2021-07-14 01:06 ==
PROVIDERS: PCP Emergency Medicine; Visit Provider Emergency Medicine
DX: R09.89 Other specified symptoms and signs involving the circulatory and respiratory systems (principal); I65.23 Occlusion and stenosis of bilateral carotid arteries
CPT/HCPCS: 93880

== ENCOUNTER 2021-07-14 02:27 | Outpatient (CLI) | payer MEDICARE, SELFPAY ==
[2021-07-14 08:34] LABS: Anion Gap 5.9 mmol/L (3-11); BUN 63 mg/dL (7-18); CO2 27.1 mmol/L (21.0-32.0); CREATININE 2.8 mg/dL (0.70-1.30); Calcium 8.7 mg/dL (8.5-10.1); Chloride 109 mmol/L (98-107); Estimated GFR 22.45 (mL/min/1.73m2); Glucose 144 mg/dL (74-106); Potassium 5.7 mmol/L (3.5-5.1); Sodium 142 mmol/L (136-145)
== END 2021-07-14 02:28 | disposition home or self-care (01) ==
LOC: LBO 02:28
PROVIDERS: PCP Emergency Medicine; Visit Provider Emergency Medicine
DX: I10 Essential (primary) hypertension (principal); E87.5 Hyperkalemia
CPT/HCPCS: 36415; 80048

== ENCOUNTER 2021-07-21 15:33 | Outpatient (REF) | payer MEDICARE, SELFPAY ==
[2021-07-21 13:44] LABS: HCT 34.1 % (40.0-50.0); HGB 10.9 g/dL (13.5-17.5); MCH 31.1 pg (27.0-33.0); MCV 97.2 fL (80-95); Platelet Count 158 10^3/uL (130-400); RBC 3.51 10^6/uL (4.36-5.78); RDW 12.5 % (11.8-14.1); RDW-SD 44.7 fL; WBC 10.76 10^3/uL (4.4-10.8)
[2021-07-21 13:53] LABS: ALT 32 U/L (16-63); AST 16 U/L (15-37); Albumin 3.1 g/dL (3.4-5.0); Alkaline Phosphatase 139 U/L (46-116); BUN 49 mg/dL (7-18); Bilirubin, Total 0.3 mg/dL (0.2-1.0); CREATININE 2.8 mg/dL (0.70-1.30); Calcium 8.8 mg/dL (8.5-10.1); Chloride 105 mmol/L (98-107); Estimated GFR 22.45 (mL/min/1.73m2); Glucose 217 mg/dL (74-106); Potassium 4.7 mmol/L (3.5-5.1); Sodium 144 mmol/L (136-145); Total Protein 6.3 g/dL (6.4-8.2)
[2021-07-21 14:02] LABS: Iron 23 ug/dL (65-175); Total Iron Binding Capacity 208 ug/dL (250-450); Transferrin Sat 11 % (20-55)
== END 2021-07-21 15:34 | disposition home or self-care (01) ==
LOC: LBN 15:33
PROVIDERS: PCP Emergency Medicine; Visit Provider Emergency Medicine
DX: E87.5 Hyperkalemia (principal); I10 Essential (primary) hypertension; E11.65 Type 2 diabetes mellitus with hyperglycemia
CPT/HCPCS: 80053; 85027; 83540; 83550

== ENCOUNTER → 2021-08-18 08:22 | Outpatient (BNVA) | payer MEDICARE, SELFPAY | PROVIDERS: PCP Emergency Medicine; Referring Provider Emergency Medicine; Visit Provider Surgery | DX: D50.9 Iron deficiency anemia, unspecified (principal); N18.4 Chronic kidney disease, stage 4 (severe) | CPT/HCPCS: 99213 ==

== ENCOUNTER 2021-08-27 03:04 | Outpatient (CLI) | payer MEDICARE, SELFPAY ==
[2021-08-27 07:50] LABS: Abs Immature Grans 0.03 10^3/uL (0.0-0.06); Absolute Basophil Count 0.09 10^3/uL (0.0-0.2); Absolute Eosinophil Count 0.44 10^3/uL (0.0-0.7); Absolute Lymphocyte Count 2.02 10^3/uL (1.2-3.4); Absolute Monocyte Count 0.47 10^3/uL (0.1-0.8); Absolute Neutrophil Count 3.93 10^3/uL (1.2-6.7); Basophils % 1.3; Eosinophils % 6.3; HCT 33.4 % (40.0-50.0); HGB 10.6 g/dL (13.5-17.5); Immature Grans % 0.4; Lymphocytes % 28.9; MCH 30.7 pg (27.0-33.0); MCHC 31.7 % (32.0-36.0); MCV 96.8 fL (80-95); MPV 9.5 fL (8.0-11.0); Monocytes % 6.7; Neutrophils % 56.4; Nucleated RBC 0 %; Platelet Count 150 10^3/uL (130-400); RBC 3.45 10^6/uL (4.36-5.78); RDW 12.6 % (11.8-14.1); RDW-SD 44.7 fL; WBC 6.98 10^3/uL (4.4-10.8)
[2021-08-27 08:00] LABS: Anion Gap 9.7 mmol/L (3-11); BUN 55 mg/dL (7-18); CO2 24.3 mmol/L (21.0-32.0); CREATININE 2.4 mg/dL (0.70-1.30); Calcium 8.9 mg/dL (8.5-10.1); Chloride 107 mmol/L (98-107); Estimated GFR 26.82 (mL/min/1.73m2); Glucose 164 mg/dL (74-106); PHOSPHORUS 4.6 mg/dL (2.6-4.7); Potassium 4.8 mmol/L (3.5-5.1); Sodium 141 mmol/L (136-145)
[2021-08-27 09:09] LABS: Vitamin D 25 Total 45.3 ng/mL (30-100)
[2021-08-28 09:23] LABS: Parathyroid Hormone,Intact 82 pg/mL (19-88)
== END 2021-08-27 03:05 | disposition home or self-care (01) ==
LOC: LBO 03:05
PROVIDERS: PCP Emergency Medicine; Visit Provider Internal Medicine
DX: N18.30 Chronic kidney disease, stage 3 unspecified (principal)
CPT/HCPCS: 36415; 80048; 82306; 83970; 84100; 85025

== ENCOUNTER 2021-08-31 03:02 | Outpatient (CLI) | payer MEDICARE, SELFPAY ==
[2021-08-31 10:13] LABS: Source Nasal/Nares
[2021-08-31 12:57] LABS: COVID-19 PCR Negative (Negative)
== END 2021-08-31 03:03 | disposition home or self-care (01) ==
LOC: LBO 03:03
PROVIDERS: PCP Emergency Medicine; Visit Provider Surgery
DX: Z20.822 Contact with and (suspected) exposure to COVID-19 (principal)
CPT/HCPCS: 87635

== ENCOUNTER 2021-09-02 07:36 | Day surgery (SDC) | payer MEDICARE, SELFPAY ==
--- NOTE | 2021-09-02 06:36 | ENDO_ITS ---
Date of service: 09/02/21 Time of Service: 12:13 Endoscopy Report DATE OF PROCEDURE: 09/02/21 PRE-OP DIAGNOSIS: Anemia POST-OP DIAGNOSIS: same (inflammation in the duodenum and at the cardia/GE junction) PROCEDURE: EGD with biopsies SURGEON: Olamide Garvin ANESTHESIA TYPE: General:No Airway (Paramjit Mcleod, NELLI) ESTIMATED BLOOD LOSS: 3 PATHOLOGY: other (duodenal Bx, Cardia Bx, GE junction) COMPLICATIONS: None DISPOSITION: same day INDICATIONS: Sanford is a pleasant 71-year-old gentleman status post colonoscopy in March who continues to have chronic anemia. He does have chronic kidney disease stage IV. He does have low iron and therefore I have been asked to perform an upper endoscopy to make sure that there is no active bleeding. He is asymptomatic at this time. He has no abdominal pain, nausea or vomiting or reflux symptoms. He does have some heartburn very rarely for which he just take some Tums if needed. We discussed the upper endoscopy in detail including the risks and the benefits. Risks, benefits and complications have been reviewed. Complications include but are not limited to bleeding, pain, perforation, sore throat, aspiration, and adverse reaction to the medications. Questions were entertained and answered to their satisfaction and they wished to proceed. No guarantees were given or implied. Proceed with EGD under sedation. We will check his potassium prior to the procedure to make sure that it is not too high. (2) Chronic kidney disease (CKD) stage G4/A3, severely decreased glomerular filtration rate (GFR) between 15-29 mL/min/1.73 square meter and albuminuria creatinine ratio greater than 300 mg/g: FINDINGS: Inflammation in the 2nd and 1st portion of the duodenum. Inflammation of the Cardia/GE junction PROCEDURE DESCRIPTION: After informed consent was obtained the patient was take to the procedure room and placed in a supine position. Monitors were applied and a time out was done. The patients name, date of , procedure type, allergies to medications and metal in their body was reviewed. A bite block was placed and the patient was sedated. Once sedated and comfortable the gastroscope was advanced through the oropharynx which was grossly normal into the esophagus. The proximal and mid- esophagus were normal. In the distal esophagus there was mild inflammation noted. The scope was advanced into the stomach and through the pylorus into the 3rd portion of the duodenum. The 1st and 2nd portion of the duodenum was noted to be mildly inflammed. There was no active bleeding and no ulcers. Biopsies were done of the inflammation. The scope was retracted back into the stomach. The antrum and body were noted to be normal. The scope was retroflexed. The fundus was noted to be normal. At the cardia/ GE junction there was inflamation and polypoid growth. This was biopsied. There was no hiatal hernia noted. The scope was retracted back into the esophagus and biopsies were done of the GE junction to rule out Dunn's. The Z line was regular. The GE junction was at 36 cm. The scope was removed and the patient was woken up and taken back to [facility] in stable condition. Follow up: I will call with results of the biopsies.
--- NOTE | 2021-09-02 06:37 | W.PM.DSUDISC ---
Discharge Plan Disposition Patient Disposition: HOME Condition: Good Discharge Details Reason For Visit: EGD Attending Provider: Olamide Garvin Primary Care Provider: Sergio Herring Home Meds and New Rx's Prescriptions: Continued albuterol sulfate [Ventolin HFA] 90 mcg/actuation HFA aerosol inhaler 2 puff inhalation QID PRN (Reason: shortness of breath or wheezing) Qty: 8.5 RF: 5 losartan [Cozaar] 25 mg tablet 25 mg PO DAILY Qty: 90 RF: 3 (DME) FreeStyle Lite Strips Strip 1 ea Miscellaneous DAILY Qty: 90 RF: 4 atorvastatin 40 mg tablet 40 mg PO DAILY Qty: 90 RF: 3 carbamazepine 100 mg tablet,chewable 50 mg PO BID Qty: 180 RF: 4 cholecalciferol (vitamin D3) 125 mcg (5,000 unit) capsule 125 mcg PO DAILY RF: 0 [id number] oil 910-1,300 mg capsule,delayed release(DR/EC) 1 cap PO BID RF: 0 (DME) lancets [FreeStyle Lancets] 28 gauge misc 1 ea Intradermal DAILY Qty: 90 RF: 4 amlodipine 5 mg tablet 5 mg PO DAILY Qty: 90 RF: 3 furosemide [Lasix] 40 mg tablet 40 mg PO DAILY Qty: 90 RF: 1 Vitamin C 1,000 MG tablet extended release 1 tab PO DAILY RF: 0 aspirin [Ecotrin Low Strength] 81 MG tablet,delayed release (DR/EC) 81 mg PO DAILY RF: 0 glimepiride 4 mg tablet 4 mg PO BID Qty: 180 RF: 3 alfuzosin 10 mg tablet extended release 24 hr 10 mg PO DAILY Qty: 90 RF: 3 metformin 500 mg tablet 500 mg PO BID Qty: 180 RF: 3 Hold Instructions: Home Medication placed on hold at Doctor's office carbamazepine [Tegretol] 200 mg tablet 200 mg PO BID Qty: 180 RF: 4 Bone Builder 1 cap PO BID RF: 0 losartan 50 mg tablet 25 mg PO DAILY RF: 0 Discharge Instructions Additional Instructions: Findings: Mild inflammation of the small bowel (duodenum) and the esophagus Follow up: I will call you with results of the biopsies I did Medication: you may restart your aspirin in 48 hours Please call if you develop: fevers >101.5 Nausea or Vomiting Abdominal pain that is not transient Rectal bleeding that is more then a tbsp A hard abdomen and inability to pass gas DAY SURGERY UNIT POST ENDOSCOPY INSTRUCTIONS Instructions for everyone who is given Anesthesia: For your safety, please do the following for the next 24 Hours: a. Do not drive or operate dangerous equipment b. Do not drink alcohol beverages or use any recreational drugs for the first 24 hours or while taking pain medications. The medications in your body may have a reaction that can be dangerous. c. Do not make any important decisions or sign any important papers 1. Generally there are no restrictions on your activity after a day or so has gone by, but you may feel a bit fatigued for a few days. 2. After you arrive home you may have a light meal and return to a normal diet as you can tolerate it without feeling sick to your stomach. 3. After surgery, you may feel pain or discomfort. This should be only transient, but if it persists please contact your doctor. 4. If there are any questions regarding the findings of your procedure, please feel free to contact your doctor. 6. If you are unable to contact your doctor with a problem, contact the hospital at [phone]. 7. Continue all your regular medications unless directed otherwise. I understand the above instructions and have no questions. Signature of Patient or Responsible Adult Escort Date/Time Name of Responsible Adult Escort Signature of Nurse Date/Time Activity:: Activity as Tolerated Diet:: As Tolerated Discharge Orders Discharge Orders: Discharge Order (Routine); Ordered 09/02/21 Ordered By: Olamide Garvin
[2021-09-02 07:55] VITALS: BP 165/67; PULSE 58; RESP 16; TEMP 36.4; O2SAT 100
[2021-09-02 08:22] LABS: Anion Gap 10.5 mmol/L (3-11); BUN 59 mg/dL (7-18); CO2 22.5 mmol/L (21.0-32.0); CREATININE 2.5 mg/dL (0.70-1.30); Calcium 8.7 mg/dL (8.5-10.1); Chloride 110 mmol/L (98-107); Estimated GFR 25.59 (mL/min/1.73m2); Glucose 186 mg/dL (74-106); Potassium 4.7 mmol/L (3.5-5.1); Sodium 143 mmol/L (136-145)
[2021-09-02] MEDS: Normal Saline 1,000 ML 80 ML IV (09:24)
--- NOTE | 2021-09-02 11:39 | W.ANESPRE ---
General Info Date of Service Date Performed: 09/02/21 Height: 5 ft 5 in Weight: 84 kg Body Mass Index (BMI): 30.8 Surgical Procedure: Operation Date: 09/02/21 09:05 Proposed Procedures Side Surgeon p Gastroscopy Olamide Garvin MD Meds Allergies and Home Medications Allergies Allergy/AdvReac Type Severity Reaction Status Date / Time No Known Allergies Allergy Verified 09/02/21 08:00 Home Medication Medication Instructions Recorded Vitamin C 1 tab PO DAILY 11/30/12 aspirin [Ecotrin Low Strength] 81 mg PO DAILY tab-cap 11/30/12 blood sugar diagnostic #90 strip 08/13/20 glimepiride 4 mg tablet 4 mg PO BID #180 tab 12/02/20 alfuzosin 10 mg tablet,extended 10 mg PO DAILY #90 tab-cap 01/14/21 release 24 hr metformin 500 mg tablet 500 mg PO BID #180 tab 01/14/21 carbamazepine 200 mg tablet 200 mg PO BID #180 tab 02/04/21 atorvastatin 40 mg tablet 40 mg PO DAILY #90 tab 02/10/21 carbamazepine 100 mg chewable 50 mg PO BID #180 tab-cap 02/10/21 tablet albuterol sulfate 90 mcg/actuation 2 puff INHALATION QID PRN #8.5 g 04/06/21 aerosol inhaler cholecalciferol (vitamin D3) 125 125 mcg PO DAILY 06/16/21 mcg (5,000 unit) capsule lancets 28 gauge #90 each 06/16/21 omega-3-epa 910 mg-fish oil 1,300 1 cap PO BID cap 06/16/21 mg capsule,delayed release amlodipine 5 mg tablet 5 mg PO DAILY #90 tab 07/21/21 furosemide 40 mg tablet 40 mg PO DAILY #90 tab 07/21/21 losartan 25 mg tablet 25 mg PO DAILY #90 tab-cap 08/04/21 Bone Builder 1 cap PO BID 08/31/21 losartan 25 mg PO DAILY 09/02/21 Current Visit Medications: Current Medications Generic Name Dose Route Start Last Admin Trade Name Freq PRN Reason Stop Dose Admin Hyoscyamine Sulfate 0.125 mg 09/02/21 06:37 Hyoscyamine 0.125 Mg Sl/Oral/Chew SL DIRECTED PRN Sodium Chloride 1,000 mls @ 80 mls/hr 09/02/21 06:00 09/02/21 09:24 Saline 1000ml Bag IV 09/21/21 23:59 80 mls/hr INFUSION KENIA Administration IV Miscellaneous Supplies 1 each 09/02/21 06:00 Iv Access IV 09/21/21 23:59 DIRECTED KENIA Ondansetron HCl 4 mg 09/02/21 06:37 Ondansetron 4 Mg/2 Ml Vial IVP Q4H PRN PRN Nausea / Vomiting Sodium Chloride 0 ml 09/02/21 06:00 Normal Saline Flush 10 Ml Syr IV 09/21/21 23:59 PRN PRN Sodium Chloride 0 ml 09/02/21 06:00 Normal Saline 10 Ml Vial IJ 09/21/21 23:59 DIRECTED PRN Sterile Water 0 ml 09/02/21 06:00 Water,Injection,Sterile 10 Ml Vial IJ 09/21/21 23:59 DIRECTED PRN PFSH Active Problems Active Problems: Problem Status Onset Code Trigger finger of left hand M65.30 Essential hypertension 07/31/13 I10 Type II diabetes mellitus, uncontrolled E11.65 Carpal tunnel syndrome 10/12/11 G56.00 Fatty pancreas 07/04/15 K86.89 Gout M10.9 Hyperlipidemia E78.5 Incipient cataract 09/14/12 H26.9 Inguinal ring laxity K40.90 Kidney stone N20.0 Lumbago M54.5 Myopia 09/14/12 H52.10 Open angle with borderline findings 09/14/12 Renal insufficiency, mild N28.9 Rosacea L71.9 Sciatica M54.30 Seizure disorder G40.909 Smoker F17.200 Spinal stenosis M48.00 Trigger finger, right index finger 01/19/17 M65.321 Tubular adenoma of colon D12.6 NPDR (nonproliferative diabetic retinopathy) ~11/08/18 E11.3299 Status post laminectomy Z98.890 Prostate nodule N40.2 BPH loc w urin obs/LUTS N40.1 Prostate cancer C61 Left wrist pain M25.532 De Quervain's tenosynovitis, left ~11/2019 M65.4 CKD (chronic kidney disease) stage 3, GFR 30-59 ml/min N18.30 Fatigue R53.83 Anemia D64.9 Newly recognized murmur R01.1 Chronic cough R05 Chewing tobacco nicotine dependence F17.220 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 chewed tobacco today at 0600 Surgical History Surgical History (Updated 09/02/21 @ 08:06 by Halle Duong) Colonoscopy - [facility] 2003;2006;2014, 2020 H/O prostate biopsy Hx of carpal tunnel repair jonas laminectomy Tobacco Smoking/Tobacco Use Status: Current every day Tobacco Type: smokeless tobacco Smokeless tobacco user: chewing tobacco Alcohol Alcohol Intake: never Substance Use Substance use: Never Substance use type: does not use Details: chews tobacco daily, pt. chewed today at 0600 Vital Signs and Lab Results Vital Signs Most Recent Vital Signs in EMR: Most Recent Vital Signs Temp Pulse Resp BP Pulse Ox 36.4 C L 58 L 16 165/67 H 100 09/02/21 07:55 09/02/21 07:55 09/02/21 07:55 09/02/21 07:55 09/02/21 07:55 Point of Care Results Point of Care Results: Finger Stick Blood Glucose 176 09/02/21 09:10 Lab Results Result Diagrams: 09/02/21 08:00 Blood Type / Crossmatch: No Data to Display Complete Blood Count: White Blood Count 6.98 10^3/uL (4.4-10.8) 08/27/21 07:36 08/27/21 Red Blood Count 3.45 10^6/uL (4.36-5.78) L 08/27/21 07:36 08/27/21 Hemoglobin 10.6 g/dL (13.5-17.5) L 08/27/21 07:36 08/27/21 Hematocrit 33.4 % (40.0-50.0) L 08/27/21 07:36 08/27/21 Platelet Count 150 10^3/uL (130-400) 08/27/21 07:36 08/27/21 Complete Metabolic Panel: Sodium Level 143 mmol/L (136-145) 09/02/21 08:00 09/02/21 Potassium Level 4.7 mmol/L (3.5-5.1) 09/02/21 08:00 09/02/21 Chloride Level 110 mmol/L (98-107) H 09/02/21 08:00 09/02/21 Carbon Dioxide Level 22.5 mmol/L (21.0-32.0) 09/02/21 08:00 09/02/21 Blood Urea Nitrogen 59 mg/dL (7-18) H 09/02/21 08:00 09/02/21 Creatinine 2.5 mg/dL (0.70-1.30) H 09/02/21 08:00 09/02/21 Estimated GFR/1.73 m2 25.59 (mL/min/1.73m2) 09/02/21 08:00 09/02/21 Calcium Level 8.7 mg/dL (8.5-10.1) 09/02/21 08:00 09/02/21 Glucose Level 186 mg/dL (74-106) H 09/02/21 08:00 09/02/21 Liver Function Panel: No Data to Display Coagulation Panel: No Data to Display Cardiac Panel: No Data to Display Arterial Blood Gas: No Data to Display Venous Blood Gas: No Data to Display Pancreas Panel: No Data to Display Thyroid Panel: No Data to Display Infectious Disease: Coronavirus (COVID-19)(PCR) Negative (Negative) 08/31/21 09:35 08/31/21 Coronavirus 2019 Source Nasal/Nares 08/31/21 09:35 08/31/21 Blood Cultures: No Data to Display Toxicology Panel: No Data to Display Imaging and Studies Imaging and Studies Study information below may be from another EMR and interpreted by another provider. Please see original notes in EMR for more complete details. Pulmonary Function Summary: Impression Normal pulmonary function tests with a significant bronchodilator effect. Clinical Correlation therefore is recommended. 04/08/21 Anesthesia Assessment and Plan Anesthesia History Personal History: No History of Anesthesia Complications and Delayed Emergence Family History: No Family History of Anesthesia Complications Exercise Tolerance Exercise Tolerance: Metabolic Equivalents>4 Pertinent Negatives Pertinent Negatives: No Symptoms of GERD, No Major Cardiovascular Symptoms or Complaints, No Major Pulmonary Symptoms or Complaints and No History of CVA/TIA Cardiac & Pulmonary Exam Cardiac Exam: Normal S1/S2 Heart Sounds Pulmonary Exam: Clear Bilateral Breath Sounds Implantable Cardiac Device Does patient have a Pacemaker or an ICD?: No Airway Exam Known Difficult Airway: No Mallampati Class: 1 Mouth Opening: Normal (> 3cm) Thyromental Distance: Greater than 3 cm Neck Range of Motion: Full ROM Neck Circumference: Thick Teeth Condition: Normal Dentition ASA Classification ASA Score: ASA 3 Emergency Case?: No NPO Status NPO Status: NPO Clears >2 hours, Solids >8 hours Anesthesia Plan Resuscitation Status: Full Code Anesthesia Technique: General Anesthesia Airway Planned: Natural Airway Monitors Used: Standard Monitors
[2021-09-02 11:41] VITALS: BMI 30.8
--- NOTE | 2021-09-02 11:58 | BOWEL_PTH ---
PATIENT: Sanford Brownlee LOC: [facility] U#:[id number] AGE/SX: 71/M ROOM: RE09/02/[address]: Olamide Garvin MD : 1950 BED: DIS: 09/02/2021 SPEC #: [id number] RECD: 09/02/21 13:07 STATUS: [facility] #: [id number] JORDAN: 09/02/21 11:[address]: Olamide Garvin DEPT: Surgical Specimen RECD BY: Homa Saenz ENTERED: 09/02/21 13:08 SP TYPE: Bowel OTHR DR: Sergio Herring DO Tissues: 1 - BIOPSY BOWEL 2 - STOMACH BIOPSY 3 - ESOPHAGUS BIOPSY Procedures: GROSS AND MICRO LEVEL 4 Comments: [id number]
[2021-09-02 12:13] VITALS: BP 113/61; PULSE 74; RESP 20; TEMP 36.1; O2SAT 95
--- NOTE | 2021-09-02 12:18 | W.ANESPOSTOP ---
Postoperative Evaluation Date, Time and Location Date Performed: 09/02/21 Time Performed: 12:18 Patient Location: Day Surgery Unit Vital Signs Most Recent Imported Vital Signs: Most Recent Vital Signs Temp Pulse Resp BP Pulse Ox 36.4 C L 58 L 16 165/67 H 100 09/02/21 07:55 09/02/21 07:55 09/02/21 07:55 09/02/21 07:55 09/02/21 07:55 Most Recent Manually Entered Vital Signs: Adult Blood Pressure: 113/61 Heart Rate: 73 Respirations: 12 Oxygen Saturation (%): 96 Temperature (C): 36.1 C Pain Score (0-10 Scale): 0 Pain Score Most Recent Pain Score: Most Recent Pain Score Pain Level 0 09/02/21 07:55 Assessment Mental Status: Awake (Alert & Oriented to Patient Baseline) Airway and Respiratory Function: Patent airway with normal (patient baseline) respiratory exam Cardiovascular Function: Hemodynamically Stable Hydration Status: Adequately Hydrated Nausea & Vomiting: No Nausea or Vomiting Pain: Pt. Denies Any Pain Peripheral Nerve Block: Patient did not receive a nerve block
[2021-09-02 12:19] VITALS: BP 113/61; PULSE 73; RESP 12; TEMPC 36.1; O2SAT 96
[2021-09-02 12:42] VITALS: BP 142/62; PULSE 63; RESP 16; TEMP 36.4; O2SAT 96
== END 2021-09-02 13:10 | disposition home or self-care (01) ==
LOC: SUR 07:37
PROVIDERS: PCP Emergency Medicine; Visit Provider Surgery
PROC: 0DJ68ZZ Inspection of Stomach, Via Natural or Artificial Opening Endoscopic (ICD-10-PCS; CPT 43235; principal; 2021-09-02 09:00)
DX: D50.9 Iron deficiency anemia, unspecified (principal); K29.80 Duodenitis without bleeding; K21.00 Gastro-esophageal reflux disease with esophagitis, without bleeding; N18.4 Chronic kidney disease, stage 4 (severe); K29.70 Gastritis, unspecified, without bleeding; K22.82 Esophagogastric junction polyp; E11.22 Type 2 diabetes mellitus with diabetic chronic kidney disease; I12.9 Hypertensive chronic kidney disease with stage 1 through stage 4 chronic kidney disease, or unspecified chronic kidney disease
CPT/HCPCS: 43239; 36415; 80048; 88305; J2001

== ENCOUNTER → 2021-11-26 03:07 | Outpatient (CLI) | payer MEDICARE, SELFPAY ==
--- NOTE | 2021-11-26 12:12 | DI.RAD_ITS ---
Exam(s) XR CHEST 2V PA LATERAL EXAM: XR CHEST 2V PA LATERAL CLINICAL HISTORY: PROSTATE CANCER C61, PRE OP EVAL TECHNIQUE: COMPARISON: CR XR CHEST 2V PA LATERAL from 02/11/2021 FINDINGS: The heart is not enlarged. Lungs are predominantly clear with a small left-sided calcified granuloma . No pleural effusion seen. Mediastinal contours appear within normal limits. IMPRESSION: No evidence of acute process. RADIATION DOSE DELIVERED: Total DLP
== END ==
PROVIDERS: PCP Family Medicine; Visit Provider Surgery
DX: J84.10 Pulmonary fibrosis, unspecified (principal); C61 Malignant neoplasm of prostate; Z01.818 Encounter for other preprocedural examination
CPT/HCPCS: 71046

== ENCOUNTER 2021-11-26 03:44 | Outpatient (CLI) | payer MEDICARE, SELFPAY ==
[2021-11-26 12:17] LABS: Abs Immature Grans 0.03 10^3/uL (0.0-0.06); Absolute Basophil Count 0.09 10^3/uL (0.0-0.2); Absolute Lymphocyte Count 1.68 10^3/uL (1.2-3.4); Absolute Monocyte Count 0.58 10^3/uL (0.1-0.8); Absolute Neutrophil Count 5.03 10^3/uL (1.2-6.7); Basophils % 1.1; Eosinophils % 7.5; HCT 32.7 % (40.0-50.0); HGB 10.3 g/dL (13.5-17.5); Immature Grans % 0.4; MCH 30.5 pg (27.0-33.0); MCHC 31.5 % (32.0-36.0); MCV 97 fL (80-95); Monocytes % 7.2; Neutrophils % 62.8; Platelet Count 162 10^3/uL (130-400); RBC 3.38 10^6/uL (4.36-5.78); RDW 12.9 % (11.8-14.1); RDW-SD 45.8 fL; WBC 8.01 10^3/uL (4.4-10.8)
[2021-11-26 12:18] LABS: Bilirubin Negative (Negative); Blood Trace-intact (Negative); Clarity Clear (Clear); Glucose 100 mg/dL (Negative); Ketones Negative (Negative); Leukocyte Esterase Negative (Negative); Nitrite Negative (Negative); Specific Gravity 1.025 (1.005-1.025); Urobilinogen 0.2 EU/dL (Up TO 0.2); pH 5.5 (5-8)
[2021-11-26 12:32] LABS: Bacteria Negative HPF (Negative); C & S Indicated? No; Casts Negative LPF (Negative); Crystals Negative HPF (Negative); Epithelial Cells Rare HPF (Negative); Mucus Trace (Negative); RBC 0-2 HPF (0-2); WBC 0-2 HPF (0-5)
[2021-11-26 13:01] LABS: Anion Gap 9.9 mmol/L (3-11); BUN 62 mg/dL (7-18); CO2 23.1 mmol/L (21.0-32.0); Calcium 8.2 mg/dL (8.5-10.1); Chloride 109 mmol/L (98-107); Estimated GFR 20.73 (mL/min/1.73m2); Glucose 270 mg/dL (74-106); Potassium 5.1 mmol/L (3.5-5.1); Sodium 142 mmol/L (136-145)
== END 2021-11-26 03:45 | disposition home or self-care (01) ==
LOC: LBO 03:44
PROVIDERS: PCP Family Medicine; Visit Provider Surgery
DX: C61 Malignant neoplasm of prostate (principal)
CPT/HCPCS: 36415; 80048; 81003; 81015; 85025

== ENCOUNTER 2021-12-01 02:15 | Outpatient (CLI) | payer MEDICARE, SELFPAY ==
--- NOTE | 2021-12-01 08:00 | RT.EKG_ITS ---
APPROVED REPORT Exam: Resting ECG Reason for Exam: PRE-OP CLEARENCE Patient Location: O HR:57 bpm ECG Measurements Heart Rate 57 AXIS NV 160 P 43 QRSd 111 QRS 25 QT 407 T 26 QTc 397 Conclusion Sinus rhythm...normal P axis, V-rate 50- 99 Normal Electrocardiogram
== END 2021-12-01 02:16 | disposition home or self-care (01) ==
LOC: RT 02:16
PROVIDERS: Visit Provider Surgery
DX: K27.9 Peptic ulcer, site unspecified, unspecified as acute or chronic, without hemorrhage or perforation (principal); D64.9 Anemia, unspecified; R01.1 Cardiac murmur, unspecified; N18.4 Chronic kidney disease, stage 4 (severe); E11.65 Type 2 diabetes mellitus with hyperglycemia
CPT/HCPCS: 99212; 93005; 93010

== ENCOUNTER 2021-12-14 14:40 | Outpatient (CLI) | payer MEDICARE, SELFPAY ==
[2021-12-14 12:09] LABS: Anion Gap 11.7 mmol/L (3-11); BUN 64 mg/dL (7-18); CO2 20.3 mmol/L (21.0-32.0); CREATININE 2.9 mg/dL (0.70-1.30); Calcium 8.6 mg/dL (8.5-10.1); Chloride 109 mmol/L (98-107); Estimated GFR 21.56 (mL/min/1.73m2); Glucose 265 mg/dL (74-106); Potassium 5.2 mmol/L (3.5-5.1); Sodium 141 mmol/L (136-145)
== END 2021-12-14 14:41 | disposition home or self-care (01) ==
LOC: LBO 14:40
PROVIDERS: PCP Family Medicine; Visit Provider Family Medicine
DX: N18.4 Chronic kidney disease, stage 4 (severe) (principal)
CPT/HCPCS: 36415; 80048

== ENCOUNTER 2021-12-14 20:32 | Outpatient (REF) | payer MEDICARE, SELFPAY ==
[2021-12-16 11:23] LABS: COVID-19 RT-PCR UVMMC Result Negative (Negative)
== END 2021-12-14 20:33 | disposition home or self-care (01) ==
LOC: LBN 20:32
PROVIDERS: PCP Family Medicine; Visit Provider Family Medicine
DX: Z20.822 Contact with and (suspected) exposure to COVID-19 (principal); Z01.818 Encounter for other preprocedural examination
CPT/HCPCS: U0003

== ENCOUNTER 2021-12-28 10:08 | Outpatient (CLI) | payer MEDICARE, SELFPAY ==
[2021-12-28 12:33] LABS: HCT 31.2 % (40.0-50.0); HGB 9.9 g/dL (13.5-17.5); MCH 30.7 pg (27.0-33.0); MCHC 31.7 % (32.0-36.0); MCV 97 fL (80-95); MPV 10.2 fL (8.0-11.0); Platelet Count 238 10^3/uL (130-400); RBC 3.22 10^6/uL (4.36-5.78); RDW 13.2 % (11.8-14.1); RDW-SD 46.4 fL
[2021-12-28 13:25] LABS: Anion Gap 11.4 mmol/L (3-11); BUN 67 mg/dL (7-18); CO2 21.6 mmol/L (21.0-32.0); CREATININE 3.3 mg/dL (0.70-1.30); Calcium 7.9 mg/dL (8.5-10.1); Chloride 110 mmol/L (98-107); Estimated GFR 18.57 (mL/min/1.73m2); Glucose 192 mg/dL (74-106); Potassium 5.2 mmol/L (3.5-5.1); Sodium 143 mmol/L (136-145)
[2021-12-28 14:10] LABS: Hemoglobin A1C 8.4 % (<5.7)
== END 2021-12-28 10:09 | disposition home or self-care (01) ==
LOC: LOS 10:10
PROVIDERS: PCP Family Medicine; Visit Provider Family Medicine
DX: E11.65 Type 2 diabetes mellitus with hyperglycemia (principal); N18.4 Chronic kidney disease, stage 4 (severe)
CPT/HCPCS: 36415; 80048; 85027; 83036

== ENCOUNTER 2022-02-01 02:52 | Outpatient (CLI) | payer MEDICARE, SELFPAY ==
[2022-02-01 12:46] LABS: Source Nasal/Nares
[2022-02-01 18:18] LABS: COVID-19 PCR Negative (Negative)
== END 2022-02-01 02:53 | disposition home or self-care (01) ==
PROVIDERS: PCP Family Medicine; Visit Provider Surgery
DX: Z20.822 Contact with and (suspected) exposure to COVID-19 (principal); Z01.818 Encounter for other preprocedural examination
CPT/HCPCS: 87635

== ENCOUNTER 2022-02-03 09:42 | Day surgery (SDC) | payer MEDICARE, SELFPAY ==
--- NOTE | 2022-02-03 06:36 | ENDO_ITS ---
Date of service: 02/03/22 Time of Service: 12:45 Endoscopy Report DATE OF PROCEDURE: 02/03/22 PRE-OP DIAGNOSIS: Peptic ulcer disease POST-OP DIAGNOSIS: other (normal) PROCEDURE: EGD SURGEON: Olamide Garvin ANESTHESIA TYPE: General:No Airway ESTIMATED BLOOD LOSS: 0 PATHOLOGY: none sent COMPLICATIONS: None DISPOSITION: same day INDICATIONS: Mr. Brownlee is a pleasant 71-year-old gentleman who is here today to discuss a fol low-up upper endoscopy for the peptic ulcer disease.? He continues to be asymptomatic from this.? He is still taking omeprazole 40 mg daily.? We discussed repeating his upper endoscopy just to make sure that everything has healed and his duodenum.? I have asked him to continue the omeprazole for now until I am able to do his procedure.? He is scheduled for a prostatectomy down at [facility] on December 17.? We will schedule his upper endoscopy 6 weeks after that to give him enough time to recover.? If he is not fully recovered and needs more time he can call us and we will push out the upper endoscopy for as long as needed. The procedure was again discussed in detail as well as the risks, benefits and complications.? We discussed COVID testing.? He tells me that he needs to be tested for COVID 72 hours prior to his prostate surgery done at [facility].? He has an appointment with his primary care physician on Tuesday.? They should be able to schedule him for a COVID test at their office.? If they are unable to do so I have asked him to call our office and we could probably try to do it here prior to his procedure. Risks, benefits and complications have been reviewed. Complications include but are not limited to bleeding, pain, perforation, sore throat, aspiration, and adverse reaction to the medications.? Questions were entertained and answered to their satisfaction and they wished to proceed. No guarantees were given or implied. EGD under sedation FINDINGS: Normal duodenum, stomach and esophagus PROCEDURE DESCRIPTION: After informed consent was obtained the patient was take to the procedure room and placed in a supine position. Monitors were applied and a time out was done. The patients name, date of , procedure type, allergies to medications and metal in their body was reviewed. A bite block was placed and the patient was sedated. Once sedated and comfortable the gastroscope was advanced through the oropharynx which was grossly normal into the esophagus. The esophagus was normal. The scope was advanced into the stomach and through the pylorus into the 3rd portion of the duodenum. The duodenum was noted to be normal. The scope was retracted back into the stomach which was normal. There were no ulcers and no inflammation. The scope was retroflexed. The cardia and fundus were noted to be normal. Therewas no hiatal hernia noted. The scope was retracted back into the esophagus. The Z line was regular. The GE junction was at 35 cm. The scope was removed and the patient was woken up and taken back to [facility] in stable condition. Follow up: as needed. Continue on omeprazole 40 mg daily. May try to decrease to 20 mg a day.
--- NOTE | 2022-02-03 06:36 | W.PM.HP.N ---
Date of service: 02/03/22 Time of Service: 11:27 Assessment and Plan Assessment and plan (1) Peptic ulcer disease: Status: Chronic Assessment and plan: Mr. Brownlee is a pleasant 71-year-old gentleman who is here today to discuss a follow-up upper endoscopy for the peptic ulcer disease.? He continues to be asymptomatic from this.? He is still taking omeprazole 40 mg daily.? We discussed repeating his upper endoscopy just to make sure that everything has healed and his duodenum.? I have asked him to continue the omeprazole for now until I am able to do his procedure.? He is scheduled for a prostatectomy down at [facility] on December 17.? We will schedule his upper endoscopy 6 weeks after that to give him enough time to recover.? If he is not fully recovered and needs more time he can call us and we will push out the upper endoscopy for as long as needed. The procedure was again discussed in detail as well as the risks, benefits and complications.? We discussed COVID testing.? He tells me that he needs to be tested for COVID 72 hours prior to his prostate surgery done at [facility].? He has an appointment with his primary care physician on Tuesday.? They should be able to schedule him for a COVID test at their office.? If they are unable to do so I have asked him to call our office and we could probably try to do it here prior to his procedure. Risks, benefits and complications have been reviewed. Complications include but are not limited to bleeding, pain, perforation, sore throat, aspiration, and adverse reaction to the medications.? Questions were entertained and answered to their satisfaction and they wished to proceed. No guarantees were given or implied. EGD under sedation once recovered from his prostate surgery. (2) Heart murmur: (3) Chronic kidney disease, stage 4 (severe): (4) Type II diabetes mellitus, uncontrolled: History of Present Illness Narrative: Mr. Brownlee is a pleasant 71-year-old gentleman who was noted to be anemic.? He underwent a colonoscopy followed by an EGD.? He was asymptomatic at the time of his procedures.? He was noted to have some peptic ulcer disease with ulcerations in his duodenum.? He continues to be anemic which is most likely secondary to his kidney disease.? He has no symptoms of heartburn or reflux.? He has not noted any blood in his stool.? He denies any chest pain or shortness of breath.? He tells me that he had an echo done today because his new primary care physician heard a murmur.? I myself heard a murmur last time I saw him.? At that time Dr. Herring did not feel that he needed an echo.? He has done well and has had no complications with the anesthetics given. He was diagnosed with prostate cancer and is scheduled for prostatectomy on December [facility] at [facility]. Review of Systems All systems reviewed & are unremarkable except as noted in HPI and below PFSH All Active Problems Essential hypertension (Acute 07/31/13) Type II diabetes mellitus, uncontrolled (Acute) Seizure disorder (Chronic) Pt. states he f/u with Dr. Herring hasn't had a seizure in 20+ years NPDR (nonproliferative diabetic retinopathy) (Acute ~11/08/18) 11/08/18 [facility]; MILD IN LEFT EYE-KB 11/24/20 [place]; MILD B/L-[facility] Anemia (Chronic) Chronic, mild-likely associated which chronic kidney disease 08/2021, HCT=33.4 2020-mildly low iron levels Chewing tobacco nicotine dependence (Acute) Carotid stenosis, bilateral (Acute) 2020-modest stenosis bilaterally by ultrasound at [facility] Heart murmur (Acute) 10/2021-early systolic murmur Chronic kidney disease, stage 4 (severe) (Acute) 08/2021-Cr-2.5 Peptic ulcer disease (Chronic) Medical History Asthma BPH loc w urin obs/LUTS Fatty pancreas (07/04/15) Gout Hyperkalemia Hyperlipidemia Kidney stone recurrently on the left at least 4 times. 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 Dwight Garvin x7 08/09/14; DR. ROSARIO; TUBULAR ADENOMA X 2 Tubulovillous adenoma of colon (~03/2021) 04/13/21 Dr. Dwight Ramirez x3 Surgical History Colonoscopy - MAC 2003;2006;2014, 2020 H/O prostate biopsy Hx of carpal tunnel repair jonas Hx of prostatectomy Hx of surgical procedure Per pt. states he had some lymph node removed during his prostatectomy laminectomy Social History Smoking/Tobacco Use Status: Current every day Tobacco Type: smokeless tobacco Smokeless tobacco user: chewing tobacco Smoking risk assessment performed?: Yes Alcohol Intake: never Drug use: Never Substance use type: does not use Details: chews tobacco daily Current gender identity: male Do you feel safe at home: Yes Do you feel safe in your relationship?: Yes Meds Allergies and Home Medications Allergies Allergy/AdvReac Type Severity Reaction Status Date / Time No Known Allergies Allergy Verified 02/03/22 10:06 Home Medications Medication Instructions Recorded Confirmed Type carbamazepine 100 mg chewable 50 mg PO BID #180 tab-caps 02/10/21 02/03/22 Rx tablet lancets 28 gauge (FreeStyle #90 ea 06/16/21 02/02/22 Rx Lancets) losartan 50 mg tablet 50 mg PO DAILY #90 tabs 10/06/21 02/03/22 Rx blood sugar diagnostic (FreeStyle #100 strips 10/12/21 02/02/22 Rx Lite Strips) atorvastatin 40 mg tablet 40 mg PO DAILY #90 tabs 11/30/21 02/03/22 Rx omeprazole 40 mg capsule,delayed 40 mg PO DAILY #90 caps 12/01/21 02/03/22 Rx release amlodipine 10 mg tablet 10 mg PO DAILY #90 tabs 12/02/21 02/03/22 Rx dulaglutide 0.75 mg/0.5 mL 0.75 mg (0.5 mL) subcut QWEEK #1 mL 12/30/21 02/03/22 Rx subcutaneous pen injector (Trulicity) glipizide 5 mg tablet 5 mg PO BID #1 tab 12/30/21 02/03/22 Rx furosemide 40 mg tablet See Rx Instructions .Route 01/13/22 02/03/22 Rx .COMPLEX #90 tabs carbamazepine 200 mg tablet 200 mg PO BID #180 tabs 01/26/22 02/03/22 Rx (Tegretol) hydralazine 25 mg tablet 25 mg PO BID #180 tabs 01/26/22 02/03/22 Rx Exam Const General: comfortable and no acute distress Orientation: alert and oriented x3 HENMT Head: normocephalic and atraumatic Resp Effort & Inspection: normal respiratory effort Auscultation: clear to auscultation bilaterally Cardio Rate: regular rate Rhythm: regular rhythm GI Inspection: normal to inspection Palpation: soft, no hepatosplenomegaly and nontender
[2022-02-03 09:56] VITALS: BP 135/65; PULSE 56; RESP 19; TEMP 36.6; O2SAT 98
[2022-02-03] MEDS: Normal Saline 1,000 ML 40 ML IV (10:31)
--- NOTE | 2022-02-03 10:45 | W.ANESPRE ---
General Info Date of Service Date Performed: 02/03/22 Height: 5 ft 5 in Weight: 81.5 kg Body Mass Index (BMI): 29.9 Surgical Procedure: Operation Date: 02/03/22 11:50 Proposed Procedure Side Surgeon p Gastroscopy Olamide Garvin MD Meds Allergies and Home Medications Allergies Allergy/AdvReac Type Severity Reaction Status Date / Time No Known Allergies Allergy Verified 02/03/22 10:06 Home Medication Medication Instructions Recorded carbamazepine 100 mg chewable 50 mg PO BID #180 tab-caps 02/10/21 tablet lancets 28 gauge (FreeStyle #90 ea 06/16/21 Lancets) losartan 50 mg tablet 50 mg PO DAILY #90 tabs 10/06/21 blood sugar diagnostic (FreeStyle #100 strips 10/12/21 Lite Strips) atorvastatin 40 mg tablet 40 mg PO DAILY #90 tabs 11/30/21 omeprazole 40 mg capsule,delayed 40 mg PO DAILY #90 caps 12/01/21 release amlodipine 10 mg tablet 10 mg PO DAILY #90 tabs 12/02/21 dulaglutide 0.75 mg/0.5 mL 0.75 mg (0.5 mL) subcut QWEEK #1 mL 12/30/21 subcutaneous pen injector (Trulicity) glipizide 5 mg tablet 5 mg PO BID #1 tab 12/30/21 furosemide 40 mg tablet See Rx Instructions .Route 01/13/22 .COMPLEX #90 tabs carbamazepine 200 mg tablet 200 mg PO BID #180 tabs 01/26/22 (Tegretol) hydralazine 25 mg tablet 25 mg PO BID #180 tabs 01/26/22 Current Visit Medications: Current Medications Generic Name Dose Route Start Last Admin Trade Name Freq PRN Reason Stop Dose Admin Hyoscyamine Sulfate 0.125 mg 02/03/22 06:40 Hyoscyamine 0.125 Mg Sl/Oral/Chew SL DIRECTED PRN Sodium Chloride 1,000 mls @ 40 mls/hr 02/03/22 06:00 02/03/22 10:31 Saline 1000ml Bag IV 40 mls/hr INFUSION KENIA Administration IV Miscellaneous Supplies 1 each 02/03/22 06:00 Iv Access IV 03/04/22 23:59 DIRECTED KENIA Ondansetron HCl 4 mg 02/03/22 06:40 Ondansetron 4 Mg/2 Ml Vial IVP Q4H PRN PRN Nausea / Vomiting Sodium Chloride 0 ml 02/03/22 06:00 Normal Saline Flush 10 Ml Syr IV 03/04/22 23:59 PRN PRN Sodium Chloride 0 ml 02/03/22 06:00 Normal Saline 10 Ml Vial IJ 03/04/22 23:59 DIRECTED PRN Sterile Water 0 ml 02/03/22 06:00 Water,Injection,Sterile 10 Ml Vial IJ 03/04/22 23:59 DIRECTED PRN PFSH Active Problems Active Problems: Problem Status Onset Code Essential hypertension 07/31/13 I10 Type II diabetes mellitus, uncontrolled E11.65 Seizure disorder G40.909 NPDR (nonproliferative diabetic retinopathy) ~11/08/18 E11.3299 Anemia D64.9 Chewing tobacco nicotine dependence F17.220 Carotid stenosis, bilateral I65.23 Heart murmur R01.1 Chronic kidney disease, stage 4 (severe) N18.4 Peptic ulcer disease K27.9 Medical History Medical History Asthma BPH loc w urin obs/LUTS Fatty pancreas (07/04/15) Gout Hyperkalemia Hyperlipidemia Kidney stone recurrently on the left at least 4 times. 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 Dwight Garvin x7 08/09/14; DR. ROSARIO; TUBULAR ADENOMA X 2 Tubulovillous adenoma of colon (~03/2021) 04/13/21 Dr. Dwight Ramirez x3 Surgical History Surgical History Colonoscopy - MAC 2003;2006;2014, 2020 H/O prostate biopsy Hx of carpal tunnel repair jonas Hx of prostatectomy Hx of surgical procedure Per pt. states he had some lymph node removed during his prostatectomy laminectomy Tobacco Smoking/Tobacco Use Status: Current every day Tobacco Type: smokeless tobacco Smokeless tobacco user: chewing tobacco Alcohol Alcohol Intake: never Substance Use Substance use: Never Substance use type: does not use Details: chews tobacco daily Vital Signs and Lab Results Vital Signs Most Recent Vital Signs in EMR: Most Recent Vital Signs Temp Pulse Resp BP Pulse Ox 36.6 C 56 L 19 135/65 98 02/03/22 09:56 02/03/22 09:56 02/03/22 09:56 02/03/22 09:56 02/03/22 09:56 Point of Care Results Point of Care Results: Finger Stick Blood Glucose 134 02/03/22 10:14 Lab Results Blood Type / Crossmatch: No Data to Display Complete Blood Count: No Data to Display Complete Metabolic Panel: No Data to Display Liver Function Panel: No Data to Display Coagulation Panel: No Data to Display Cardiac Panel: No Data to Display Arterial Blood Gas: No Data to Display Venous Blood Gas: No Data to Display Pancreas Panel: No Data to Display Thyroid Panel: No Data to Display Infectious Disease: Coronavirus (COVID-19)(PCR) Negative (Negative) 02/01/22 07:25 Coronavirus 2019 Source Nasal/Nares 02/01/22 07:25 Blood Cultures: No Data to Display Toxicology Panel: No Data to Display Imaging and Studies Imaging and Studies Study information below may be from another EMR and interpreted by another provider. Please see original notes in EMR for more complete details. Pulmonary Function Summary: Impression Normal pulmonary function tests with a significant bronchodilator effect. Clinical Correlation therefore is recommended. 04/08/21 Anesthesia Assessment and Plan Anesthesia History Personal History: No History of Anesthesia Complications Family History: No Family History of Anesthesia Complications Exercise Tolerance Exercise Tolerance: Metabolic Equivalents>4 Pertinent Negatives Pertinent Negatives: No Major Cardiovascular Symptoms or Complaints and No Major Pulmonary Symptoms or Complaints Cardiac & Pulmonary Exam Cardiac Exam: Normal S1/S2 Heart Sounds Pulmonary Exam: Clear Bilateral Breath Sounds Implantable Cardiac Device Does patient have a Pacemaker or an ICD?: No Airway Exam Known Difficult Airway: No Mallampati Class: 1 Mouth Opening: Normal (> 3cm) Thyromental Distance: Greater than 3 cm Neck Range of Motion: Full ROM Neck Circumference: Thick Teeth Condition: Normal Dentition ASA Classification ASA Score: ASA 3 Emergency Case?: No NPO Status NPO Status: NPO Clears >2 hours, Solids >8 hours Anesthesia Plan Resuscitation Status: Full Code Anesthesia Technique: General Anesthesia Airway Planned: Natural Airway Monitors Used: Standard Monitors
[2022-02-03 10:51] VITALS: BMI 29.9
--- NOTE | 2022-02-03 12:47 | PDOC.DSDIS_ITS ---
Discharge Plan Disposition Patient Disposition: HOME Condition: Good Discharge Details Reason For Visit: Peptic ulcer disease Attending Provider: Olamide Garvin Primary Care Provider: Emile Ferrer Home Meds and New Rx's Prescriptions: Continued losartan 50 mg tablet 50 mg PO DAILY Qty: 90 3RF omeprazole 40 mg capsule,delayed release(DR/EC) 40 mg PO DAILY Qty: 90 2RF carbamazepine 100 mg tablet,chewable 50 mg PO BID Qty: 180 4RF (DME) lancets [FreeStyle Lancets] 28 gauge misc 1 ea Intradermal DAILY Qty: 90 4RF Rx Instructions: Dx: E11.9 hydralazine 25 mg tablet 25 mg PO BID Qty: 180 3RF carbamazepine [Tegretol] 200 mg tablet 200 mg PO BID Qty: 180 3RF (DME) FreeStyle Lite Strips Strip See Rx Instructions .ROUTE .COMPLEX Qty: 100 3RF Dose Instruction: TEST IN THE MORNING DIRECTED Rx Instructions: TEST IN THE MORNING DIRECTED atorvastatin 40 mg tablet 40 mg PO DAILY Qty: 90 3RF amlodipine 10 mg tablet 10 mg PO DAILY Qty: 90 3RF glipizide 5 mg tablet 5 mg PO BID Qty: 1 0RF [place] [facility] [place]ulicity 0.75 mg/0.5 mL pen injector 0.75 mg subcut QWEEK Qty: 1 0RF Rx Instructions[place] [facility] [place]urosemide 40 mg tablet See Rx Instructions .ROUTE .COMPLEX Qty: 90 3RF Dose Instruction: TAKE 1 TABLET BY MOUTH DAILY Rx Instructions: TAKE 1 TABLET BY MOUTH DAILY Discharge Instructions Additional Instructions: Findings: Normal Follow up: as needed medications: As there is no evidence of inflammation or ulcers you could try and reduce the Omeprazole dose to 20 mg daily. If you start to have heart burn then go back up to 40 mg and stay on that. Please call if you develop: fevers >101.5 Nausea or Vomiting Abdominal pain that is not transient Rectal bleeding that is more then a tbsp A hard abdomen and inability to pass gas DAY SURGERY UNIT POST ENDOSCOPY INSTRUCTIONS Instructions for everyone who is given Anesthesia: For your safety, please do the following for the next 24 Hours: a. Do not drive or operate dangerous equipment b. Do not drink alcohol beverages or use any recreational drugs for the first 24 hours or while taking pain medications. The medications in your body may have a reaction that can be dangerous. c. Do not make any important decisions or sign any important papers 1. Generally there are no restrictions on your activity after a day or so has gone by, but you may feel a bit fatigued for a few days. 2. After you arrive home you may have a light meal and return to a normal diet as you can tolerate it without feeling sick to your stomach. 3. After surgery, you may feel pain or discomfort. This should be only transient, but if it persists please contact your doctor. 4. If there are any questions regarding the findings of your procedure, please feel free to contact your doctor. 6. If you are unable to contact your doctor with a problem, contact the hospital at [phone]. 7. Continue all your regular medications unless directed otherwise. I understand the above instructions and have no questions. Signature of Patient or Responsible Adult Escort Date/Time Name of Responsible Adult Escort Signature of Nurse Date/Time Activity:: Activity as Tolerated Diet:: As Tolerated Discharge Orders Discharge Orders: Discharge Order (Routine); Ordered 02/03/22 Ordered By: Olamide Garvin DS: Diagnosis Discharge Diagnosis (1) Peptic ulcer disease: Status: Chronic
[2022-02-03 12:58] VITALS: BP 115/65; PULSE 59; RESP 16; TEMP 36.7; O2SAT 95
--- NOTE | 2022-02-03 13:03 | W.ANESPOSTOP ---
Postoperative Evaluation Date, Time and Location Date Performed: 02/03/22 Time Performed: 12:58 Patient Location: Day Surgery Unit Vital Signs Most Recent Imported Vital Signs: Most Recent Vital Signs Temp Pulse Resp BP Pulse Ox 36.7 C 59 L 16 115/65 95 02/03/22 12:58 02/03/22 12:58 02/03/22 12:58 02/03/22 12:58 02/03/22 12:58 Pain Score Most Recent Pain Score: Most Recent Pain Score Pain Level 0 02/03/22 12:58 Assessment Mental Status: Awake (Alert & Oriented to Patient Baseline) Airway and Respiratory Function: Patent airway with normal (patient baseline) respiratory exam Cardiovascular Function: Hemodynamically Stable Hydration Status: Adequately Hydrated Nausea & Vomiting: No Nausea or Vomiting Pain: Pt. Denies Any Pain Peripheral Nerve Block: Patient did not receive a nerve block
[2022-02-03 13:20] VITALS: BP 157/81; PULSE 54; RESP 18; TEMP 36.6; O2SAT 98
== END 2022-02-03 13:45 | disposition home or self-care (01) ==
PROVIDERS: PCP Family Medicine; Visit Provider Surgery
PROC: 0DJ68ZZ Inspection of Stomach, Via Natural or Artificial Opening Endoscopic (ICD-10-PCS; CPT 43235; principal; 2022-02-03 11:45)
DX: Z09 Encounter for follow-up examination after completed treatment for conditions other than malignant neoplasm (principal); Z87.11 Personal history of peptic ulcer disease; E11.22 Type 2 diabetes mellitus with diabetic chronic kidney disease; E11.65 Type 2 diabetes mellitus with hyperglycemia; N18.4 Chronic kidney disease, stage 4 (severe); D64.9 Anemia, unspecified; C61 Malignant neoplasm of prostate
CPT/HCPCS: 43235; J2704

== ENCOUNTER 2022-04-22 04:22 | Outpatient (CLI) | payer MEDICARE, SELFPAY ==
[2022-04-22 12:45] LABS: HCT 31.2 % (40.0-50.0); MCH 30.6 pg (27.0-33.0); MCHC 32.1 % (32.0-36.0); MCV 95 fL (80-95); Platelet Count 175 10^3/uL (130-400); RBC 3.27 10^6/uL (4.36-5.78); RDW 12.9 % (11.8-14.1); RDW-SD 44.7 fL; WBC 6.85 10^3/uL (4.4-10.8)
[2022-04-22 13:45] LABS: Hemoglobin A1C 6.8 % (<5.7)
[2022-04-22 14:08] LABS: TROPONIN-I 10.5 ug/mL (4.0-12.0)
[2022-04-22 14:14] LABS: ALT 22 U/L (16-63); AST 17 U/L (15-37); Albumin 3.2 g/dL (3.4-5.0); Alkaline Phosphatase 148 U/L (46-116); Anion Gap 7.1 mmol/L (3-11); BUN 56 mg/dL (7-18); Bilirubin, Total 0.3 mg/dL (0.2-1.0); CO2 23.9 mmol/L (21.0-32.0); CREATININE 3.2 mg/dL (0.70-1.30); Calculated LDL 81 mg/dL (<100); Chloride 109 mmol/L (98-107); Cholesterol 155 mg/dL (<200); Glucose 135 mg/dL (74-106); HDL Cholesterol 46 mg/dL (40-60); Potassium 5.7 mmol/L (3.5-5.1); Sodium 140 mmol/L (136-145); Total Protein 6.7 g/dL (6.4-8.2); Triglyceride 140 mg/dL (<150)
[2022-04-22 14:20] LABS: COMMENT (LAB VIEW ONLY) 59.53 mg/dL
== END 2022-04-22 04:23 | disposition home or self-care (01) ==
LOC: LOS 04:22
PROVIDERS: PCP Family Medicine; Visit Provider Family Medicine
DX: E11.65 Type 2 diabetes mellitus with hyperglycemia (principal); G40.909 Epilepsy, unspecified, not intractable, without status epilepticus; I10 Essential (primary) hypertension; N18.4 Chronic kidney disease, stage 4 (severe)
CPT/HCPCS: 36415; 80053; 80061; 85027; 80156; 82043; 82570; 83036

== ENCOUNTER 2022-04-27 09:41 | Outpatient (CLI) | payer MEDICARE, SELFPAY ==
[2022-04-27 12:15] LABS: ESR 19 mm/hr (0-20)
[2022-04-27 12:19] LABS: C-Reactive Protein 1.44 mg/dL (0.0-0.3); Potassium 5.2 mmol/L (3.5-5.1)
== END 2022-04-27 09:42 | disposition home or self-care (01) ==
LOC: LOS 09:42
PROVIDERS: PCP Family Medicine; Referring Provider Family Medicine; Visit Provider Family Medicine
DX: I10 Essential (primary) hypertension (principal); R79.82 Elevated C-reactive protein (CRP); R41.89 Other symptoms and signs involving cognitive functions and awareness; M25.50 Pain in unspecified joint
CPT/HCPCS: 36415; 85652; 84132; 86140

== ENCOUNTER 2022-06-09 14:37 | Outpatient (REF) | payer MEDICARE, SELFPAY ==
[2022-06-09 20:41] LABS: Abs Immature Grans 0.04 10^3/uL (0.0-0.06); Absolute Eosinophil Count 0.29 10^3/uL (0.0-0.7); Absolute Lymphocyte Count 0.84 10^3/uL (1.2-3.4); Absolute Monocyte Count 0.77 10^3/uL (0.1-0.8); Absolute Neutrophil Count 4.64 10^3/uL (1.2-6.7); Basophils % 1.5; Eosinophils % 4.3; HCT 29.3 % (40.0-50.0); HGB 9.6 g/dL (13.5-17.5); Immature Grans % 0.6; Lymphocytes % 12.6; MCH 30.6 pg (27.0-33.0); MCHC 32.8 % (32.0-36.0); MCV 93 fL (80-95); MPV 10.8 fL (8.0-11.0); Monocytes % 11.5; Neutrophils % 69.5; Platelet Count 179 10^3/uL (130-400); RBC 3.14 10^6/uL (4.36-5.78); RDW 12.7 % (11.8-14.1); RDW-SD 43.5 fL; WBC 6.68 10^3/uL (4.4-10.8)
[2022-06-09 20:44] LABS: ESR 37 mm/hr (0-20)
[2022-06-09 21:01] LABS: TSH 0.68 uIU/mL (0.36-3.74)
== END 2022-06-09 14:38 | disposition home or self-care (01) ==
LOC: LBN 14:37
PROVIDERS: PCP Family Medicine; Visit Provider Nurse Practitioner Family
DX: D64.9 Anemia, unspecified (principal); E11.3293 Type 2 diabetes mellitus with mild nonproliferative diabetic retinopathy without macular edema, bilateral; R22.1 Localized swelling, mass and lump, neck
CPT/HCPCS: 85652; 84443; 85025

== ENCOUNTER → 2022-06-09 16:26 | Outpatient (CLI) | payer MEDICARE, SELFPAY ==
--- NOTE | 2022-06-09 14:30 | DI.US_ITS ---
Exam(s) US SOFT TISSUE HEAD OR NECK EXAM: US SOFT TISSUE HEAD OR NECK CLINICAL HISTORY: evaluate pathology R22.1 SWELLING NECK. TECHNIQUE: Ultrasound was performed using standard protocol. COMPARISON: No exams were available for comparison FINDINGS: Sonographic assessment utilizing grayscale and color Doppler imaging was performed and targeted to th e area of clinical concern in the anterior mid neck. There is edema in the subcutaneous fat but no d rainable fluid collection or abscess. There is no evidence of mass or adenopathy.. IMPRESSION: Subcutaneous edema. DATA REPOSITORY:
== END ==
PROVIDERS: PCP Family Medicine; Visit Provider Nurse Practitioner Family
DX: R22.1 Localized swelling, mass and lump, neck (principal)
CPT/HCPCS: 76536

== ENCOUNTER 2022-09-14 10:21 | Outpatient (CLI) | payer MEDICARE, SELFPAY ==
[2022-09-14 12:23] LABS: C-Reactive Protein 2.24 mg/dL (0.0-0.3); CREATININE 3.3 mg/dL (0.70-1.30); Estimated GFR 19.09 (mL/min/1.73m2); Potassium 4.9 mmol/L (3.5-5.1)
[2022-09-14 12:59] LABS: ESR 23 mm/hr (0-20)
== END 2022-09-14 10:22 | disposition home or self-care (01) ==
LOC: LOS 10:21
PROVIDERS: PCP Family Medicine; Referring Provider Family Medicine; Visit Provider Family Medicine
DX: R79.82 Elevated C-reactive protein (CRP) (principal); I10 Essential (primary) hypertension; M25.50 Pain in unspecified joint
CPT/HCPCS: 36415; 85652; 82565; 84132; 86038; 86140; 86431

== ENCOUNTER 2022-12-15 11:02 | Outpatient (CLI) | payer MEDICARE, SELFPAY ==
[2022-12-15 12:44] LABS: C-Reactive Protein 1.83 mg/dL (0.0-0.3); Creatine Kinase 98 U/L (39-308); Uric Acid 6.9 mg/dL (3.5-7.2)
[2022-12-15 13:20] LABS: ESR 33 mm/hr (0-20)
[2022-12-17 16:28] LABS: Lyme Ab w Rflx to Lyme Confirm Negative (Negative)
== END 2022-12-15 11:03 | disposition home or self-care (01) ==
LOC: LOS 11:02
PROVIDERS: PCP Family Medicine; Referring Provider Family Medicine; Visit Provider Family Medicine
DX: M10.9 Gout, unspecified (principal); R41.89 Other symptoms and signs involving cognitive functions and awareness; M25.50 Pain in unspecified joint; M25.439 Effusion, unspecified wrist; G72.89 Other specified myopathies
CPT/HCPCS: 36415; 82550; 85652; 84550; 86140; 86618

== ENCOUNTER 2022-12-15 12:31 | Outpatient (CLI) | payer MEDICARE, SELFPAY ==
--- NOTE | 2022-12-15 12:15 | DI.RAD_ITS ---
Exam(s) XR WRIST RT COMPLETE EXAM: XR WRIST RT COMPLETE CLINICAL HISTORY: wrist pain on right,wrist swelling,m25.439. TECHNIQUE: 2D digital imaging was performed. COMPARISON: No exams were available for comparison FINDINGS: 3 views No evidence fracture or dislocation. Mild positive ulnar variance noted. Scaphoid and scapholunate distance are unremarkable. Moderate degenerative changes are noted triscaphe 4 joint. First carpome tacarpal joint appears unremarkable. Vascular calcifications noted both radial and ulnar arteries. IMPRESSION: As above. No acute fractures. DATA REPOSITORY: RADIATION DOSE DELIVERED:
== END 2022-12-15 12:51 ==
LOC: DI 12:31
PROVIDERS: PCP Family Medicine; Visit Provider Family Medicine
DX: M25.531 Pain in right wrist (principal); M25.439 Effusion, unspecified wrist
CPT/HCPCS: 73110

== ENCOUNTER 2023-01-21 00:35 | Outpatient (RCR) | payer MEDICARE, SELFPAY ==
[2022-12-24] MEDS: Darbepoetin 25 MCG SYR SC (10:02)
[2023-01-21 09:25] LABS: HCT 30.3 % (40.0-50.0); HGB 9.5 g/dL (13.5-17.5)
[2023-01-21] MEDS: Darbepoetin 25 MCG SYR SC (09:39)
== END 2023-01-21 23:59 | disposition home or self-care (01) ==
LOC: INF 00:35
PROVIDERS: PCP Family Medicine; Visit Provider Nurse Practitioner Acute Care
DX: N18.4 Chronic kidney disease, stage 4 (severe) (principal); D63.1 Anemia in chronic kidney disease
CPT/HCPCS: 36415; 96372; 85014; 85018; J0881

== ENCOUNTER 2023-02-18 01:04 | Outpatient (RCR) | payer MEDICARE, SELFPAY ==
[2023-02-18 09:21] LABS: HCT 28.4 % (40.0-50.0); HGB 8.9 g/dL (13.5-17.5)
[2023-02-18] MEDS: Darbepoetin 40 MCG SYR SC (10:22)
== END 2023-02-21 23:59 | disposition home or self-care (01) ==
LOC: INF 01:04
PROVIDERS: PCP Family Medicine; Visit Provider Nurse Practitioner Acute Care
DX: N18.4 Chronic kidney disease, stage 4 (severe) (principal); D63.1 Anemia in chronic kidney disease
CPT/HCPCS: 36415; 96372; 85014; 85018; J0881

== ENCOUNTER → 2023-03-17 08:30 | Outpatient (BNVA) | payer MEDICARE, SELFPAY | PROVIDERS: PCP Family Medicine; Referring Provider Family Medicine; Visit Provider Student in an Organized Health Care Education/Training Program | DX: M65.4 Radial styloid tenosynovitis [de Quervain] (principal) | CPT/HCPCS: 99213 ==

== ENCOUNTER 2023-03-18 00:56 | Outpatient (RCR) | payer MEDICARE, SELFPAY ==
[2023-03-18 09:25] LABS: HCT 31.1 % (40.0-50.0); HGB 9.8 g/dL (13.5-17.5)
[2023-03-18 09:42] LABS: Iron 58 ug/dL (65-175); Total Iron Binding Capacity 196 ug/dL (250-450); Transferrin Sat 30 % (20-55)
[2023-03-18 09:56] LABS: Ferritin 147 ng/mL (26-388)
[2023-03-18] MEDS: Darbepoetin 40 MCG SYR SC (09:57)
== END 2023-03-24 23:59 | disposition home or self-care (01) ==
LOC: INF 00:56
PROVIDERS: PCP Family Medicine; Visit Provider Nurse Practitioner Acute Care
DX: N18.4 Chronic kidney disease, stage 4 (severe) (principal); D63.1 Anemia in chronic kidney disease
CPT/HCPCS: 36415; 96372; 82728; 83540; 83550; 85014; 85018; J0881

== ENCOUNTER 2023-04-15 01:43 | Outpatient (RCR) | payer MEDICARE, SELFPAY ==
[2023-04-15 09:16] LABS: HCT 29.9 % (40.0-50.0); HGB 9.3 g/dL (13.5-17.5)
== END 2023-04-23 23:59 | disposition home or self-care (01) ==
LOC: INF 01:43
PROVIDERS: PCP Family Medicine; Visit Provider Nurse Practitioner Acute Care
DX: N18.4 Chronic kidney disease, stage 4 (severe) (principal); D63.1 Anemia in chronic kidney disease
CPT/HCPCS: 36415; 96372; 85014; 85018; J0881

== ENCOUNTER 2023-05-12 04:20 | Outpatient (RCR) | payer MEDICARE, SELFPAY ==
[2023-05-12 09:44] LABS: HCT 31.9 % (40.0-50.0); HGB 9.5 g/dL (13.5-17.5)
== END 2023-05-24 23:59 | disposition home or self-care (01) ==
LOC: INF 04:20
PROVIDERS: PCP Family Medicine; Visit Provider Nurse Practitioner Acute Care
DX: N18.4 Chronic kidney disease, stage 4 (severe) (principal); D63.1 Anemia in chronic kidney disease
CPT/HCPCS: 36415; 96372; 85014; 85018; J0881

== ENCOUNTER 2023-06-09 04:21 | Outpatient (RCR) | payer MEDICARE, SELFPAY ==
[2023-06-09 09:29] LABS: HCT 30.9 % (40.0-50.0); HGB 9.6 g/dL (13.5-17.5)
[2023-06-09 09:42] LABS: Iron 57 ug/dL (65-175); Total Iron Binding Capacity 183 ug/dL (250-450); Transferrin Sat 31 % (20-55)
[2023-06-09 10:08] LABS: Ferritin 162 ng/mL (26-388)
== END 2023-06-23 23:59 | disposition home or self-care (01) ==
LOC: INF 04:21
PROVIDERS: PCP Family Medicine; Visit Provider Nurse Practitioner Acute Care
DX: N18.4 Chronic kidney disease, stage 4 (severe) (principal); D63.1 Anemia in chronic kidney disease
CPT/HCPCS: 36415; 96372; 82728; 83540; 83550; 85014; 85018; J0881

== ENCOUNTER 2023-07-07 01:41 | Outpatient (RCR) | payer MEDICARE, SELFPAY ==
[2023-07-07 09:06] LABS: HCT 32.2 % (40.0-50.0); HGB 10.2 g/dL (13.5-17.5)
== END 2023-07-24 23:59 | disposition home or self-care (01) ==
LOC: INF 01:41
PROVIDERS: Nurse Practitioner; PCP Family Medicine; Visit Provider Nurse Practitioner Acute Care
DX: N18.4 Chronic kidney disease, stage 4 (severe) (principal); D63.1 Anemia in chronic kidney disease
CPT/HCPCS: 36415; 96523; 85014; 85018; J0881

== ENCOUNTER 2023-08-04 03:17 | Outpatient (RCR) | payer MEDICARE, SELFPAY ==
[2023-08-04 09:29] LABS: HCT 31.2 % (40.0-50.0); HGB 9.9 g/dL (13.5-17.5)
== END 2023-08-24 23:59 | disposition home or self-care (01) ==
LOC: INF 03:17
PROVIDERS: PCP Family Medicine; Visit Provider Nurse Practitioner Acute Care
DX: N18.4 Chronic kidney disease, stage 4 (severe) (principal); D63.1 Anemia in chronic kidney disease
CPT/HCPCS: 36415; 96372; 85014; 85018; J0881

== ENCOUNTER 2023-08-25 04:54 | Outpatient (CLI) | payer MEDICARE, SELFPAY ==
[2023-08-25 12:37] LABS: Anion Gap 8.6 mmol/L (3-11); BUN 68 mg/dL (7-18); CO2 27.4 mmol/L (21.0-32.0); Calcium 9.3 mg/dL (8.5-10.1); Chloride 109 mmol/L (98-107); Glucose 129 mg/dL (74-106); Potassium 4.9 mmol/L (3.5-5.1); Sodium 145 mmol/L (136-145)
[2023-08-25 13:39] LABS: CREATININE 4.8 mg/dL (0.70-1.30)
== END 2023-08-25 04:55 | disposition home or self-care (01) ==
LOC: LBO 04:55
PROVIDERS: PCP Family Medicine; Visit Provider Nurse Practitioner
DX: N18.4 Chronic kidney disease, stage 4 (severe) (principal)
CPT/HCPCS: 36415; 80048

== ENCOUNTER 2023-09-01 02:00 | Outpatient (RCR) | payer MEDICARE, SELFPAY ==
[2023-09-01 09:28] LABS: HCT 30.5 % (40.0-50.0); HGB 9.7 g/dL (13.5-17.5)
[2023-09-01 09:47] LABS: Iron 80 ug/dL (65-175); Total Iron Binding Capacity 192 ug/dL (250-450); Transferrin Sat 42 % (20-55)
[2023-09-01 09:54] LABS: Ferritin 148 ng/mL (26-388)
== END 2023-09-22 23:59 | disposition home or self-care (01) ==
LOC: INF 02:00
PROVIDERS: PCP Family Medicine; Visit Provider Nurse Practitioner Acute Care
DX: N18.4 Chronic kidney disease, stage 4 (severe) (principal); D63.1 Anemia in chronic kidney disease
CPT/HCPCS: 36415; 96372; 82728; 83540; 83550; 85014; 85018; J0881

== ENCOUNTER 2023-09-08 04:19 | Outpatient (CLI) | payer MEDICARE, SELFPAY ==
[2023-09-08 12:58] LABS: BUN 66 mg/dL (7-18); Calcium 8.8 mg/dL (8.5-10.1); Chloride 113 mmol/L (98-107); Glucose 119 mg/dL (74-106); Potassium 4.3 mmol/L (3.5-5.1); Sodium 150 mmol/L (136-145)
[2023-09-08 13:11] LABS: CREATININE 4.8 mg/dL (0.70-1.30)
[2023-09-09 17:53] LABS: PSA, Ultrasensitive 0.02 ng/mL (<= 6.5)
== END 2023-09-08 04:20 | disposition home or self-care (01) ==
LOC: LBO 04:20
PROVIDERS: Nurse Practitioner; PCP Family Medicine; Visit Provider Surgery
DX: C61 Malignant neoplasm of prostate (principal)
CPT/HCPCS: 36415; 80048; 84153

== ENCOUNTER 2023-09-15 01:21 | Outpatient (CLI) | payer MEDICARE, SELFPAY ==
[2023-09-15 12:31] LABS: Anion Gap 9.9 mmol/L (3-11); BUN 64 mg/dL (7-18); CO2 26.1 mmol/L (21.0-32.0); Calcium 8.7 mg/dL (8.5-10.1); Chloride 111 mmol/L (98-107); Estimated GFR 10.99 (mL/min/1.73m2); Glucose 143 mg/dL (74-106); Potassium 4.4 mmol/L (3.5-5.1); Sodium 147 mmol/L (136-145)
[2023-09-15 12:39] LABS: CREATININE 5.2 mg/dL (0.70-1.30)
== END 2023-09-15 01:22 | disposition home or self-care (01) ==
LOC: LBO 01:21
PROVIDERS: PCP Family Medicine; Visit Provider Nurse Practitioner
DX: N18.4 Chronic kidney disease, stage 4 (severe) (principal)
CPT/HCPCS: 36415; 80048

== ENCOUNTER 2023-09-29 03:18 | Outpatient (RCR) | payer MEDICARE, SELFPAY ==
[2023-09-29 09:29] LABS: HCT 32.8 % (40.0-50.0); HGB 10.2 g/dL (13.5-17.5)
== END 2023-10-23 23:59 | disposition home or self-care (01) ==
LOC: INF 03:18
PROVIDERS: PCP Family Medicine; Visit Provider Nurse Practitioner Acute Care
DX: N18.4 Chronic kidney disease, stage 4 (severe) (principal); D63.1 Anemia in chronic kidney disease; C61 Malignant neoplasm of prostate
CPT/HCPCS: 36415; 96372; 85014; 85018; J0881

== ENCOUNTER 2023-10-27 04:45 | Outpatient (RCR) | payer MEDICARE, SELFPAY ==
[2023-10-27 09:06] LABS: HCT 31.5 % (40.0-50.0); HGB 9.7 g/dL (13.5-17.5)
[2023-10-27 09:21] LABS: Anion Gap 8.3 mmol/L (3-11); BUN 75 mg/dL (7-18); CO2 26.7 mmol/L (21.0-32.0); Calcium 8.4 mg/dL (8.5-10.1); Chloride 112 mmol/L (98-107); Glucose 110 mg/dL (74-106); Potassium 5.4 mmol/L (3.5-5.1); Sodium 147 mmol/L (136-145)
[2023-10-27 09:35] LABS: CREATININE 5.4 mg/dL (0.70-1.30)
== END 2023-11-22 23:59 | disposition home or self-care (01) ==
LOC: INF 04:45
PROVIDERS: Nurse Practitioner; PCP Family Medicine; Visit Provider Nurse Practitioner Acute Care
DX: N18.4 Chronic kidney disease, stage 4 (severe) (principal); D63.1 Anemia in chronic kidney disease; C61 Malignant neoplasm of prostate
CPT/HCPCS: 36415; 80048; 96372; 85014; 85018; J0881

== ENCOUNTER 2023-12-22 03:49 | Outpatient (RCR) | payer MEDICARE, SELFPAY ==
[2023-12-22 09:04] LABS: HCT 30.5 % (40.0-50.0); HGB 9.4 g/dL (13.5-17.5)
== END 2023-12-23 23:59 | disposition home or self-care (01) ==
LOC: INF 03:49
PROVIDERS: PCP Family Medicine; Visit Provider Nurse Practitioner Acute Care
DX: N18.5 Chronic kidney disease, stage 5 (principal); D63.1 Anemia in chronic kidney disease; C61 Malignant neoplasm of prostate
CPT/HCPCS: 36415; 96372; 85014; 85018; J0881

== ENCOUNTER 2024-01-19 01:14 | Outpatient (RCR) | payer MEDICARE, SELFPAY | END 2024-01-22 23:59 | disposition home or self-care (01) | LOC: INF 01:14 | PROVIDERS: PCP Family Medicine; Visit Provider Nurse Practitioner Acute Care | DX: N18.5 Chronic kidney disease, stage 5 (principal); D63.1 Anemia in chronic kidney disease | CPT/HCPCS: 96372; J0881 ==

== ENCOUNTER 2024-02-16 02:19 | Outpatient (RCR) | payer MEDICARE, SELFPAY ==
[2024-02-16 09:25] LABS: HCT 30.6 % (40.0-50.0); HGB 9.6 g/dL (13.5-17.5)
[2024-02-16 09:46] LABS: Anion Gap 11.2 mmol/L (3-11); BUN 74 mg/dL (7-18); CO2 23.8 mmol/L (21.0-32.0); Calcium 8.7 mg/dL (8.5-10.1); Chloride 109 mmol/L (98-107); Estimated GFR 8.84 (mL/min/1.73m2); Glucose 156 mg/dL (74-106); PHOSPHORUS 5.5 mg/dL (2.6-4.7); Potassium 4.9 mmol/L (3.5-5.1); Sodium 144 mmol/L (136-145)
[2024-02-16 10:31] LABS: CREATININE 6.2 mg/dL (0.70-1.30)
== END 2024-02-22 23:59 | disposition home or self-care (01) ==
LOC: INF 02:19
PROVIDERS: Nurse Practitioner; PCP Family Medicine; Visit Provider Nurse Practitioner Acute Care
DX: N18.5 Chronic kidney disease, stage 5 (principal); D63.1 Anemia in chronic kidney disease
CPT/HCPCS: 36415; 80048; 96372; 84100; 85014; 85018; J0881

== ENCOUNTER 2024-03-15 03:24 | Outpatient (RCR) | payer MEDICARE, SELFPAY | END 2024-03-24 23:59 | disposition home or self-care (01) | LOC: INF 03:24 | PROVIDERS: PCP Family Medicine; Visit Provider Nurse Practitioner Acute Care | DX: N18.5 Chronic kidney disease, stage 5 (principal); D63.1 Anemia in chronic kidney disease | CPT/HCPCS: 96372; J0881 ==

== ENCOUNTER → 2024-03-29 11:32 | Outpatient (BNVA) | payer MEDICARE, SELFPAY | PROVIDERS: PCP Family Medicine; Referring Provider Family Medicine; Visit Provider Physical Therapy Assistant | DX: N18.4 Chronic kidney disease, stage 4 (severe) (principal); Z12.11 Encounter for screening for malignant neoplasm of colon | CPT/HCPCS: 99213 ==

== ENCOUNTER 2024-04-12 02:56 | Outpatient (RCR) | payer MEDICARE, SELFPAY ==
[2024-04-12 09:27] LABS: HCT 30.3 % (40.0-50.0); HGB 9.2 g/dL (13.5-17.5)
== END 2024-04-23 23:59 | disposition home or self-care (01) ==
LOC: INF 02:56
PROVIDERS: Nurse Practitioner; PCP Family Medicine; Visit Provider Nurse Practitioner Acute Care
DX: N18.5 Chronic kidney disease, stage 5 (principal); D63.1 Anemia in chronic kidney disease
CPT/HCPCS: 85014; 85018; J0881

== ENCOUNTER 2024-05-10 02:35 | Outpatient (RCR) | payer MEDICARE, SELFPAY ==
[2024-05-10 09:20] LABS: HCT 32.2 % (40.0-50.0); HGB 9.8 g/dL (13.5-17.5)
[2024-05-10 09:59] LABS: Iron 93 ug/dL (65-175); Total Iron Binding Capacity 193 ug/dL (250-450); Transferrin Sat 48 % (20-55)
[2024-05-10 10:12] LABS: Ferritin 187 ng/mL (26-388)
== END 2024-05-24 23:59 | disposition home or self-care (01) ==
LOC: INF 02:35
PROVIDERS: Nurse Practitioner; PCP Family Medicine; Visit Provider Nurse Practitioner Acute Care
DX: N18.5 Chronic kidney disease, stage 5 (principal); D63.1 Anemia in chronic kidney disease
CPT/HCPCS: 96372; 82728; 83540; 83550; 85014; 85018; J0881

== ENCOUNTER 2024-06-07 01:44 | Outpatient (RCR) | payer MEDICARE, SELFPAY ==
[2024-06-07 09:25] LABS: HCT 31.9 % (40.0-50.0); HGB 9.6 g/dL (13.5-17.5)
== END 2024-06-23 23:59 | disposition home or self-care (01) ==
LOC: INF 01:44
PROVIDERS: Nurse Practitioner; PCP Family Medicine; Visit Provider Nurse Practitioner Acute Care
DX: N18.5 Chronic kidney disease, stage 5 (principal); D63.1 Anemia in chronic kidney disease
CPT/HCPCS: 36415; 96372; 85014; 85018; J0881

== ENCOUNTER 2024-07-05 03:12 | Outpatient (RCR) | payer MEDICARE, SELFPAY ==
[2024-07-05 09:16] LABS: HCT 32.6 % (40.0-50.0); HGB 9.7 g/dL (13.5-17.5)
== END 2024-07-24 23:59 | disposition home or self-care (01) ==
LOC: INF 03:12
PROVIDERS: Nurse Practitioner; PCP Family Medicine; Visit Provider Nurse Practitioner Acute Care
DX: N18.5 Chronic kidney disease, stage 5 (principal); D63.1 Anemia in chronic kidney disease
CPT/HCPCS: 36415; 96372; 85014; 85018; J0881

== ENCOUNTER 2024-08-02 04:08 | Outpatient (RCR) | payer MEDICARE, SELFPAY ==
[2024-08-02 09:26] LABS: HCT 33.1 % (40.0-50.0); HGB 9.9 g/dL (13.5-17.5)
[2024-08-02 09:47] LABS: Iron 99 ug/dL (65-175); Total Iron Binding Capacity 205 ug/dL (250-450); Transferrin Sat 48 % (20-55)
[2024-08-02 09:55] LABS: Ferritin 133 ng/mL (26-388)
== END 2024-08-24 23:59 | disposition home or self-care (01) ==
LOC: INF 04:08
PROVIDERS: Nurse Practitioner Psychiatric/Mental Health; PCP Family Medicine; Visit Provider Nurse Practitioner Acute Care
DX: N18.5 Chronic kidney disease, stage 5 (principal); D63.1 Anemia in chronic kidney disease
CPT/HCPCS: 36415; 96372; 82728; 83540; 83550; 85014; 85018; J0881

== ENCOUNTER 2024-08-30 01:32 | Outpatient (RCR) | payer MEDICARE, SELFPAY ==
[2024-08-30 08:56] LABS: Abs Immature Grans 0.03 10^3/uL (0.0-0.06); Absolute Eosinophil Count 0.51 10^3/uL (0.0-0.7); Absolute Lymphocyte Count 0.89 10^3/uL (1.2-3.4); Absolute Monocyte Count 0.56 10^3/uL (0.1-0.8); Absolute Neutrophil Count 4.42 10^3/uL (1.2-6.7); Basophils % 1.5 %; Eosinophils % 7.8 %; HGB 9.5 g/dL (13.5-17.5); Immature Grans % 0.5 %; Lymphocytes % 13.7 %; MCHC 29.7 % (32.0-36.0); MCV 101 fL (80-95); MPV 11.2 fL (8.0-11.0); Monocytes % 8.6 %; Neutrophils % 67.9 %; Platelet Count 154 10^3/uL (130-400); RBC 3.17 10^6/uL (4.36-5.78); RDW 15.9 % (11.8-14.1); RDW-SD 59.2 fL; WBC 6.51 10^3/uL (4.4-10.8)
[2024-08-30 08:57] LABS: Bilirubin Negative (Negative); Blood Trace-intact (Negative); Clarity Sl Cloudy (Clear); Glucose 250 mg/dL (Negative); Ketones Negative (Negative); Leukocyte Esterase Negative (Negative); Nitrite Negative (Negative); Specific Gravity 1.025 (1.005-1.025); Urobilinogen 0.2 mg/dL (Up to 0.2)
[2024-08-30 09:11] LABS: Bacteria Few HPF (Negative); C & S Indicated? No; Casts Negative LPF (Negative); Crystals Few Amorphous HPF (Negative); Epithelial Cells Rare HPF (Negative); Mucus Negative (Negative); RBC 0-2 HPF (0-2); WBC 0-2 HPF (0-5)
[2024-08-30 09:13] LABS: Iron 87 ug/dL (65-175); Total Iron Binding Capacity 206 ug/dL (250-450); Transferrin Sat 42 % (20-55)
[2024-08-30 09:14] LABS: Albumin 2.8 g/dL (3.4-5.0); Anion Gap 7.9 mmol/L (3-11); BUN 73 mg/dL (7-18); CO2 28.1 mmol/L (21.0-32.0); COMMENT (LAB VIEW ONLY) 89.02 mg/dL; Calcium 8.9 mg/dL (8.5-10.1); Chloride 112 mmol/L (98-107); Estimated GFR 7.27 (mL/min/1.73m2); Glucose 146 mg/dL (74-106); PHOSPHORUS 5.3 mg/dL (2.6-4.7); PROTEIN 744.3 mg/dL; Potassium 5.1 mmol/L (3.5-5.1); Prot/Crea Ur Ratio 8.36; Sodium 148 mmol/L (136-145)
[2024-08-30 09:25] LABS: CREATININE 7.3 mg/dL (0.70-1.30)
[2024-08-30 10:03] LABS: Ferritin 170 ng/mL (26-388); Vitamin D 25 Total 7.3 ng/mL (30-100)
== END 2024-09-21 23:59 | disposition home or self-care (01) ==
LOC: INF 01:32
PROVIDERS: Nurse Practitioner; PCP Family Medicine; Visit Provider Nurse Practitioner Acute Care
DX: N18.5 Chronic kidney disease, stage 5 (principal); D63.1 Anemia in chronic kidney disease
CPT/HCPCS: 36415; 80048; 82306; 96372; 81003; 81015; 82040; 82565; 82728; 83540; 83550; 83970; 84100; 84156; 85014; 85018; 85025; J0881

== ENCOUNTER 2024-10-02 02:41 | Outpatient (RCR) | payer MEDICARE, SELFPAY ==
[2024-10-02 09:22] LABS: HCT 30.2 % (40.0-50.0); HGB 9.2 g/dL (13.5-17.5)
[2024-10-02] MEDS: Darbepoetin 200 MCG SYR SC (09:59)
== END 2024-10-22 23:59 | disposition home or self-care (01) ==
LOC: INF 02:41
PROVIDERS: Nurse Practitioner; PCP Family Medicine; Visit Provider Nurse Practitioner Acute Care
DX: N18.5 Chronic kidney disease, stage 5 (principal); D63.1 Anemia in chronic kidney disease
CPT/HCPCS: 36415; 85014; 85018; J0881

== ENCOUNTER 2024-10-30 01:39 | Outpatient (RCR) | payer MEDICARE, SELFPAY ==
[2024-10-30] MEDS: Darbepoetin 300 MCG SYR SC (09:09)
== END 2024-11-21 23:59 | disposition home or self-care (01) ==
LOC: INF 01:39
PROVIDERS: PCP Family Medicine; Visit Provider Nurse Practitioner Acute Care
DX: N18.5 Chronic kidney disease, stage 5 (principal); D63.1 Anemia in chronic kidney disease
CPT/HCPCS: 96372; J0881

== ENCOUNTER 2024-11-27 01:25 | Outpatient (RCR) | payer MEDICARE, SELFPAY ==
[2024-11-27 09:27] LABS: HCT 30.8 % (40.0-50.0); HGB 9.1 g/dL (13.5-17.5)
== END 2024-12-22 23:59 | disposition home or self-care (01) ==
LOC: INF 01:25
PROVIDERS: Nurse Practitioner; PCP Family Medicine; Visit Provider Nurse Practitioner Acute Care
DX: N18.5 Chronic kidney disease, stage 5 (principal); D63.1 Anemia in chronic kidney disease
CPT/HCPCS: 36415; 96372; 85014; 85018; J0881

== ENCOUNTER 2024-12-25 01:39 | Outpatient (RCR) | payer MEDICARE, SELFPAY | END 2025-01-21 23:59 | disposition home or self-care (01) | LOC: INF 01:39 | PROVIDERS: PCP Family Medicine; Visit Provider Nurse Practitioner Acute Care | DX: N18.5 Chronic kidney disease, stage 5 (principal); D63.1 Anemia in chronic kidney disease | CPT/HCPCS: 96372; J0881 ==

== ENCOUNTER 2025-01-28 18:57 | Emergency (ER) | payer MEDICARE, SELFPAY ==
[2025-01-28] VITALS (29 sets, daily range): BP systolic 109–170; BP diastolic 40–61; PULSE 64–79; RESP 9–20; TEMP 36.3; O2SAT 90–98
--- NOTE | 2025-01-28 19:00 | RT.EKG_ITS ---
APPROVED REPORT Exam: Resting ECG Reason for Exam: dizziness Patient Location: E HR:73 bpm ECG Measurements Heart Rate 73 AXIS WI 159 P 20 QRSd 98 QRS 1 QT 417 T 28 QTc 462 Conclusion Sinus rhythm at a rate of 73 without acute ischemic change
--- NOTE | 2025-01-28 19:30 | DI.CT_ITS ---
Exam(s) CT HEAD WO EXAM: CT HEAD WO CLINICAL HISTORY: vision change. TECHNIQUE: Imaging Protocol: Axial computed tomography images with coronal and sagittal reformatted images were created and reviewed COMPARISON: No exams were available for comparison FINDINGS: There are no skull fractures. There are surgical defects noted in the medial ledezma of the maxillary sinuses from endoscopic surgery. There is no mucosal thickening in the paranasal sinuses. There is no fluid in the visualized paranasal sinuses. There is no evidence of intracranial hemorrhage, mass effect, or shift of midline structures. There are no extra-axial fluid collections. The ventricles are not enlarged or shifted and there is no blood within the ventricular system nor within the basal cisterns. There is symmetrical generalized atrophy of the upper convexities. IMPRESSION: No acute intracranial findings on this noninfused CT scan of the brain. Report called by myself to ER provider 01/28/2025 at 9:27 p.m. RADIATION DOSE DELIVERED: 875mGy.cm Total DLP DATA REPOSITORY: All CT scans at this facility are submitted to the National Radiology Data Registry (NRDR) Dose Index Registry (DIR) with the [employer] ([employer]). RADIATION OPTIMIZATION: All CT scans at this facility use at least one of these dose optimization techniques: automated exposure control; mA and/or kV adjustment per patient size (includes targeted exams where dose is matched to clinical indication); or iterative reconstruction.
--- NOTE | 2025-01-28 19:30 | DI.RAD_ITS ---
Exam(s) XR CHEST 2V PA LATERAL EXAM: XR CHEST 2V PA LATERAL CLINICAL HISTORY: weakness. TECHNIQUE: 2D digital imaging was performed. COMPARISON: CR XR CHEST 2V PA LATERAL from 11/26/2021 FINDINGS: 2 views: There is a right double-lumen supraclavicular central line. Its distal tip is in the upper right atrium. Heart size is normal. The mediastinum is not widened. Lungs are clear. No infiltrates nor pleural effusions. No pulmonary edema. Again noted is a benign calcified granuloma in the lateral aspect of the left lung. IMPRESSION: No acute pulmonary findings. DATA REPOSITORY: RADIATION DOSE DELIVERED:
[2025-01-28 19:44] LABS: BE (Venous) 6 mmol/L (-2-3); HCO3 (Venous) 30 mmol/L (23-28); O2 Sat (Venous) 83 %; TCO2 (Venous) 28 mmol/L (24-29); pCO2 (Venous) 45 mmHg (41-51); pO2 (Venous) 48 mmHg
[2025-01-28 19:46] LABS: Abs Immature Grans 0.04 10^3/uL (0.0-0.06); HCT 31.7 % (40.0-50.0); HGB 9.4 g/dL (13.5-17.5); Immature Grans % 0.6 %; MCH 27.3 pg (27.0-33.0); MCHC 29.7 % (32.0-36.0); MCV 92 fL (80-95); MPV 11.3 fL (8.0-11.0); Platelet Count 177 10^3/uL (130-400); RBC 3.44 10^6/uL (4.36-5.78); RDW 17.3 % (11.8-14.1); RDW-SD 58.4 fL; WBC 6.61 10^3/uL (4.4-10.8)
[2025-01-28 20:10] LABS: Glucose 250 mg/dL (Negative)
[2025-01-28 20:11] LABS: ALT 29 U/L (16-63); AST 24 U/L (15-37); Albumin 2.7 g/dL (3.4-5.0); Alkaline Phosphatase 144 U/L (46-116); Anion Gap 11.5 mmol/L (3-11); BUN 51 mg/dL (7-18); Bilirubin, Total 0.3 mg/dL (0.2-1.0); CO2 30.5 mmol/L (21.0-32.0); Calcium 8.6 mg/dL (8.5-10.1); Chloride 104 mmol/L (98-107); Estimated GFR 7.87 (mL/min/1.73m2); Glucose 155 mg/dL (74-106); Magnesium 2.6 mg/dL (1.8-2.4); Potassium 3.8 mmol/L (3.5-5.1); Sodium 146 mmol/L (136-145); TSH (W/Ref FT4) 1.22 uIU/mL (0.36-3.74); Total Protein 6.3 g/dL (6.4-8.2); Troponin I 23 ng/L (<or=76)
[2025-01-28 20:17] LABS: RBC Negative HPF (0-2); WBC 0-2 HPF (0-5)
[2025-01-28 20:18] LABS: C & S Indicated? No
[2025-01-28 20:48] LABS: Troponin I 23 ng/L (<or=76)
--- NOTE | 2025-01-28 21:37 | DI.VRAD_ITS ---
PROCEDURE INFORMATION: Exam: CT Head Without Contrast Exam date and time: 01/28/2025 8:47 PM Age: 75 years old Clinical indication: Visual disturbance; Visual changes TECHNIQUE: Imaging protocol: Computed tomography of the head without contrast. Radiation optimization: All CT scans at this facility use at least one of these dose optimization techniques: automated exposure control; mA and/or kV adjustment per patient size (includes targeted exams where dose is matched to clinical indication); or iterative reconstruction. COMPARISON: NM BONE SCAN WHOLE BODY [facility] 04/20/2019 2:05 PM FINDINGS: Brain:Moderate volume loss No hemorrhage.Mild white matter disease. No mass effect. Cerebral ventricles: No ventriculomegaly. Paranasal sinuses: Visualized sinuses are unremarkable. No fluid levels. Mastoid air cells: Visualized mastoid air cells are well aerated. Bones: Unremarkable. No acute fracture. Soft tissues: Unremarkable. IMPRESSION: No acute intracranial abnormality. Dictated and Authenticated by: Aldair Mitchell MD. Orderin Miguelito Luther MD
--- NOTE | 2025-01-28 21:38 | DI.VRAD_ITS ---
PROCEDURE INFORMATION: Exam: XR Chest Exam date and time: 01/28/2025 8:57 PM Age: 75 years old Clinical indication: Other: Weakness TECHNIQUE: Imaging protocol: Radiologic exam of the chest. Views: 2 views. COMPARISON: CR XR CHEST 2V PA LATERAL 11/26/2021 12:04 PM FINDINGS: Right IJ central venous catheter at the cavoatrial junction Lungs: Unremarkable. No consolidation. Pleural spaces: Unremarkable. No pleural effusion. No pneumothorax. Heart/Mediastinum: Unremarkable. No cardiomegaly. Bones/joints: Unremarkable. IMPRESSION: No acute findings. Dictated and Authenticated by: Aldair Mitchell MD. Orderin Miguelito Luther MD
--- NOTE | 2025-01-28 22:54 | W.ED.GENAD ---
Discharge Plan Disposition Patient Disposition: Home Discharge Details Clinical Impression: Weakness Primary Care Provider: Emile Ferrer ED Provider: Homa Farley Home Meds and New Rx's Prescriptions: Continued Aranesp (in polysorbate) 300 mcg/0.6 mL syringe 300 mcg IV Q4W Qty: 0.6 5RF calcitriol 0.5 mcg capsule 0.5 mcg PO DAILY losartan 50 mg tablet 50 mg PO DAILY atorvastatin 40 mg tablet 40 mg PO DAILY Qty: 100 3RF furosemide 40 mg tablet See Rx Instructions .ROUTE .COMPLEX Qty: 90 3RF Dose Instruction: TAKE 1 TABLET BY MOUTH DAILY Rx Instructions: TAKE 1 TABLET BY MOUTH DAILY Januvia 50 mg tablet 50 mg PO DAILY Qty: 90 3RF doxazosin 4 mg tablet 12 mg PO QHS Qty: 270 3RF sevelamer carbonate 800 mg tablet 800 mg PO TID Rx Instructions: must administer with a meal/food carbamazepine [Tegretol] 200 mg tablet 200 mg PO BID Qty: 180 3RF glipizide 5 mg tablet extended release 24hr 5 mg PO BID Qty: 180 3RF carbamazepine 100 mg tablet,chewable 50 mg PO BID Qty: 90 4RF omeprazole 20 mg capsule,delayed release(DR/EC) See Rx Instructions .ROUTE .COMPLEX Qty: 90 3RF Dose Instruction: TAKE 1 CAPSULE BY MOUTH DAILY Rx Instructions: TAKE 1 CAPSULE BY MOUTH DAILY (DME) FreeStyle Lite Strips Strip See Rx Instructions .ROUTE .COMPLEX Qty: 200 3RF Dose Instruction: TEST IN THE MORNING DIRECTED Rx Instructions: TEST twice/day (DME) lancets [FreeStyle Lancets] 28 gauge misc 1 ea Intradermal DAILY Qty: 200 4RF Rx Instructions: test twice/day hydralazine 100 mg tablet 50 - 100 mg PO TID Qty: 225 2RF Rx Instructions: 100 mg AM, 100 mg PM, and 50 mg evening ascorbic acid (vitamin C) 1,000 mg tablet 1,000 mg PO DAILY sodium bicarbonate 650 mg tablet 1,300 mg PO BID Rx Instructions: per neph Discharge Instructions Instructions: Generalized Weakness (DC) Additional Instructions: at this time, I would recommend skipping your mid-day dose of hydralazine ask regarding daily fluid intake parameters have your blood pressure rechecked tomorrow call Dr Ferrer tomorrow to schedule f/u appt use cane when going from sitting to standing discuss your symptoms with dialysis staff prior to initiation of dialysis tomorrow please be reevaluated should you develop worsening symptoms, gait instability, low blood pressure, or should any new concerns arise follow-up with ophthalmology regarding your vision Referrals: Emile Ferrer MD [Primary Care Provider, Medicine] HPI General Date/Time Provider Initiated Documentation: 01/28/25 19:12. HPI Narrative: 75-year-old male with retinopathy presenting with weakness, blurred vision, and lightheadedness. Symptoms started this evening after dinner. [place] lightheaded and vision was shadowy while walking in the bathroom. noted pallor and unsteadiness, prompting ED visit. Vision has been off for the past few days. No head pain, changes in strength, sensation, speech, falls, injuries, loss of consciousness, or palpitations. Related Data Home Medications ?Medication ?Instructions ?Recorded ?Confirmed darbepoetin tee in polysorbat 300 300 mcg (0.6 mL) IV Q4W #0.6 mL 06/28/23 01/28/25 mcg/0.6 mL in polysorbate injection syringe (Aranesp) sevelamer carbonate 800 mg tablet 800 mg PO TID 03/29/24 01/28/25 carbamazepine 100 mg chewable 50 mg (1/2 x 100 mg) PO BID #90 05/02/24 01/28/25 tablet tab-caps omeprazole 20 mg capsule,delayed See Rx Instructions .Route 05/03/24 01/28/25 release .COMPLEX #90 caps blood sugar diagnostic (FreeStyle #200 strips 06/30/24 01/28/25 Lite Strips) lancets 28 gauge (FreeStyle #200 ea 06/30/24 01/28/25 Lancets) atorvastatin 40 mg tablet 40 mg PO DAILY #100 tabs 07/03/24 01/28/25 calcitriol 0.5 mcg capsule 0.5 mcg PO DAILY 07/03/24 01/28/25 furosemide 40 mg tablet See Rx Instructions .Route 07/03/24 01/28/25 .COMPLEX #90 tabs losartan 50 mg tablet 50 mg PO DAILY 07/03/24 01/28/25 sitagliptin phosphate 50 mg tablet 50 mg PO DAILY #90 tabs 07/03/24 01/28/25 (Januvia) doxazosin 4 mg tablet 12 mg (3 x 4 mg) PO QHS #270 tabs 07/05/24 01/28/25 carbamazepine 200 mg tablet 200 mg PO BID #180 tabs 01/03/25 01/28/25 (Tegretol) glipizide 5 mg tablet, extended 5 mg PO BID #180 tabs 01/03/25 01/28/25 release 24 hr hydralazine 100 mg tablet 50 - 100 mg (0.5 - 1 x 100 mg) PO 01/08/25 01/28/25 TID #225 tabs ascorbic acid (vitamin C) 1,000 mg 1,000 mg PO DAILY 01/28/25 01/28/25 tablet sodium bicarbonate 650 mg tablet 1,300 mg PO BID 01/28/25 01/28/25 Previous Rx's ?Medication ?Instructions ?Recorded darbepoetin tee in polysorbat 300 300 mcg (0.6 mL) IV Q4W #0.6 mL 06/28/23 mcg/0.6 mL in polysorbate injection syringe (Aranesp) carbamazepine 100 mg chewable 50 mg (1/2 x 100 mg) PO BID #90 05/02/24 tablet tab-caps omeprazole 20 mg capsule,delayed See Rx Instructions .Route 05/03/24 release .COMPLEX #90 caps blood sugar diagnostic (FreeStyle #200 strips 06/30/24 Lite Strips) lancets 28 gauge (FreeStyle #200 ea 06/30/24 Lancets) atorvastatin 40 mg tablet 40 mg PO DAILY #100 tabs 07/03/24 furosemide 40 mg tablet See Rx Instructions .Route 07/03/24 .COMPLEX #90 tabs sitagliptin phosphate 50 mg tablet 50 mg PO DAILY #90 tabs 07/03/24 (Januvia) doxazosin 4 mg tablet 12 mg (3 x 4 mg) PO QHS #270 tabs 07/05/24 carbamazepine 200 mg tablet 200 mg PO BID #180 tabs 01/03/25 (Tegretol) glipizide 5 mg tablet, extended 5 mg PO BID #180 tabs 01/03/25 release 24 hr hydralazine 100 mg tablet 50 - 100 mg (0.5 - 1 x 100 mg) PO 01/08/25 TID #225 tabs Allergies Allergy/AdvReac Type Severity Reaction Status Date / Time dulaglutide (From [facility]) AdvReac Severe nausea/vomi Verified 01/28/25 19:13 ting General Stated Complaint: Dizzy/Sync DANNY: 3 Exam Narrative Exam Narrative: General Appearance: Alert and oriented, no acute distress. Vital signs: Within normal limits. HEENT: Pupils equal, round, reactive to light and accommodation. Visual acuity and extraocular muscles intact. Respiratory: No respiratory distress. Cardiovascular: Cardiac rate and rhythm regular. No carotid bruit. Gastrointestinal: No abdominal tenderness. Back, Musculoskeletal: Ambulatory with cautious but preserved gait. Neurological: Neurological exam intact. Negative [id number], heel strickland, and pronator drift tests. Skin: Warm and dry, no rash. Course Vital Signs Vital signs: Vital Signs Temperature 36.3 C L 01/28/25 19:04 Pulse 72 01/28/25 19:04 Respiratory Rate 14 01/28/25 19:04 Blood Pressure 109/53 L 01/28/25 19:04 Pulse Oximetry 92 01/28/25 19:04 Temperature 36.3 C L 01/28/25 19:04 Temperature Source Oral 01/28/25 19:04 Pulse 75 01/28/25 21:54 Pulse 74 01/28/25 21:54 Respiratory Rate 13 01/28/25 21:54 Respiratory Effort Normal 01/28/25 19:26 Respiratory Depth Normal 01/28/25 19:26 Respiratory Pattern Normal 01/28/25 19:26 Blood Pressure 153/52 H 01/28/25 21:54 Blood Pressure Mean 91 01/28/25 21:54 Pulse Oximetry 96 01/28/25 21:53 Oxygen Delivery Method Room Air 01/28/25 19:04 Oxygen Flow Rate 0 01/28/25 19:04 Pain Level 0 01/28/25 19:04 Lab/Test Results Lab/Test Results: Laboratory Tests Range/Units 01/28/25 01/28/25 01/28/25 19:22 19:55 20:23 WBC (4.4-10.8) 10^3/uL 6.61 RBC (4.36-5.78) 10^6/uL 3.44 L Hgb (13.5-17.5) g/dL 9.4 L Hct (40.0-50.0) % 31.7 L MCV (80-95) fL 92 MCH (27.0-33.0) pg 27.3 MCHC (32.0-36.0) % 29.7 L RDW (11.8-14.1) % 17.3 H Plt Count (130-400) 10^3/uL 177 MPV (8.0-11.0) fL 11.3 H Immature Gran % % 0.6 Neutrophils % % 65.9 Lymphocytes % % 14.5 Monocytes % % 10.7 Eosinophils % % 6.8 Basophils % % 1.5 Nucleated RBC % (0.0-0.3) % 0.0 Absolute Neutrophils (1.2-6.7) 10^3/uL 4.35 Absolute Lymphocytes (1.2-3.4) 10^3/uL 0.96 L Absolute Monocytes (0.1-0.8) 10^3/uL 0.71 Absolute Eosinophils (0.0-0.7) 10^3/uL 0.45 Absolute Basophils (0.0-0.2) 10^3/uL 0.10 VBG pH (7.31-7.41) 7.43 H VBG pCO2 (41-51) mmHg 45 VBG pO2 mmHg 48 VBG HCO3 (23-28) mmol/L 30 H VBG Total CO2 (24-29) mmol/L 28 VBG O2 Saturation % 83 VBG Base Excess (-2-3) mmol/L 6 H Sodium (136-145) mmol/L 146 H Potassium (3.5-5.1) mmol/L 3.8 Chloride (98-107) mmol/L 104 Carbon Dioxide (21.0-32.0) mmol/L 30.5 Anion Gap (3-11) mmol/L 11.5 H BUN (7-18) mg/dL 51 H Creatinine (0.70-1.30) mg/dL 6.8 H* Est GFR (CKD-EPI 2020) (mL/min/1.73m2) 7.87 Glucose (74-106) mg/dL 155 H Calcium (8.5-10.1) mg/dL 8.6 Magnesium (1.8-2.4) mg/dL 2.6 H Total Bilirubin (0.2-1.0) mg/dL 0.3 AST (15-37) U/L 24 ALT (16-63) U/L 29 Alkaline Phosphatase (46-116) U/L 144 H Troponin I (<or=76) ng/L 23 23 Total Protein (6.4-8.2) g/dL 6.3 L Albumin (3.4-5.0) g/dL 2.7 L TSH (0.36-3.74) uIU/mL 1.22 Urine Color (Yellow) Yellow Urine Clarity (Clear) Sl Cloudy Urine pH (5-8) 6.0 Ur Specific [place] (1.005-1.025) 1.025 Urine Protein (Neg-Trace) mg/dL >=300 H Urine Ketones (Negative) mg/dL Negative Urine Blood (Negative) Negative Urine Nitrite (Negative) Negative Urine Bilirubin (Negative) Negative Urine Urobilinogen (Up to 0.2) mg/dL 0.2 Ur Leukocyte Esterase (Negative) Negative Urine RBC (0-2) HPF Negative Urine WBC (0-5) HPF 0-2 Ur Epithelial Cells (Negative) HPF Few Urine Crystals (Negative) HPF Negative Urine Bacteria (Negative) HPF Packed Urine Casts (Negative) LPF 5-10 Hyaline Urine Mucus (Negative) Negative Ur Culture Indicated? No Urine Glucose (Negative) mg/dL 250 H Carbamazepine (4.0-12.0) ug/mL 8.9 Medical Decision Making Baseline hemoglobin 9.4, hematocrit 31.7. BUN 51, creatinine 6.8, magnesium 2.6. No hypokalemia. Urinalysis and VBG reassuring. EKG without acute abnormalities. CT head per radiology interpretation of my review does not show acute abnormality, chest x-ray per radiology interpretation of my review Initial Assessment: 75-year-old male with weakness, blurred vision, and lightheadedness. Differential Diagnosis: - TIA or CVA: Low suspicion. No dizziness, neuro intact. - Dehydration: Suspected. BP 80/50 at night. Increased hydralazine dosing midday. Hold afternoon dose until PCP visit. ED Course: - Labs: No significant acute abnormality. Baseline hemoglobin 9.4, hematocrit 31.7, BUN 51, creatinine 6.8, magnesium 2.6. - EKG: No acute abnormalities. - Urinalysis: No acute abnormality. - VBG: Reassuring. - Orthostatics: Negative. - Hydralazine dose held, Further remaining several days until patient follows up with PC P Final Assessment: Labs and EKG showed no acute abnormalities. Suspected dehydration due to increased hydralazine dosing. Held hydralazine dose. Ambulatory with cautious but steady gait. Clinical Impression: - Dehydration - Low suspicion for TIA or CVA Disposition: - Discharge: Home. Ambulatory with cautious but steady gait. No clear indication for hospital admission. Close return precautions reviewed. - Follow-Up: PCP visit for hydralazine dosing. Dialysis tomorrow, mention symptoms to dialysis team. PFSH All Active Problems (Updated 01/28/25 @ 22:14 by MYKEL Elizondo) Weakness (Acute) Onychodystrophy (Acute) Hearing loss (Acute) Controlled diabetes mellitus (Acute) Tubulovillous adenoma (Acute) De Quervain's tenosynovitis, right (Acute) Wrist swelling (Acute) Fatigue (Acute) Elevated C-reactive protein (CRP) (Acute) Arthralgia (Acute) Essential hypertension (Acute 07/31/13) Seizure disorder (Chronic) Pt. states he f/u with Dr. Herring hasn't had a seizure in 20+ years NPDR (nonproliferative diabetic retinopathy) (Acute ~11/08/18) 11/08/18 [facility]; MILD IN LEFT EYE-KB 11/24/20 [facility]; MILD B/L-KB Anemia (Chronic) Chronic, mild-likely associated which chronic kidney disease 08/2021, HCT=33.4 2020-mildly low iron levels Chewing tobacco nicotine dependence (Acute) Carotid stenosis, bilateral (Acute) 2020-modest stenosis bilaterally by ultrasound at [facility] Heart murmur (Acute) 10/2021-early systolic murmur Chronic kidney disease, stage 4 (severe) (Acute) 08/2021-Cr-2.5 Peptic ulcer disease (Chronic) Medical History Asthma BPH loc w urin obs/LUTS Fatty pancreas (07/04/15) Gout Hyperkalemia Hyperlipidemia Kidney stone recurrently on the left at least 4 times. 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 Dwight Garvin x7 08/09/14; DR. ROSARIO; TUBULAR ADENOMA X 2 Tubulovillous adenoma of colon (~03/2021) 04/13/21 Dr. Dwight Ramirez x3 Surgical History Colonoscopy - [facility] [place] 2003;2006;2014, 2020 H/O prostate biopsy Hx of carpal tunnel repair jonas Hx of prostatectomy Hx of surgical procedure Per pt. states he had some lymph node removed during his prostatectomy laminectomy Social History Smoking/Tobacco Use Status: Current every day Tobacco Type: smokeless tobacco Tobacco: How many years used: 50 Smokeless tobacco user: snuff and dissolvable tobacco Quit status: has quit before Smoking risk assessment performed?: Yes Alcohol Intake: never Drug use: Never Substance use type: does not use Details: chews tobacco daily Current gender identity: male Do you feel safe at home: Yes Do you feel safe in your relationship?: Yes
== END 2025-01-28 22:30 | disposition home or self-care (01) ==
PROVIDERS: Emergency Provider Physician Assistant; PCP Family Medicine
DX: R53.1 Weakness (principal); E11.22 Type 2 diabetes mellitus with diabetic chronic kidney disease; I12.0 Hypertensive chronic kidney disease with stage 5 chronic kidney disease or end stage renal disease; N18.6 End stage renal disease; E78.5 Hyperlipidemia, unspecified; F17.290 Nicotine dependence, other tobacco product, uncomplicated; Z79.85 Long-term (current) use of injectable non-insulin antidiabetic drugs; Z79.84 Long term (current) use of oral hypoglycemic drugs; Z99.2 Dependence on renal dialysis
CPT/HCPCS: 80053; 82805; 82962; 93005; 99285; 70450; 71046; 80156; 81003; 81015; 83735; 84443; 84484; 85025; 93010; 99284

== ENCOUNTER 2025-02-13 11:22 | Emergency (ER) | payer MEDICARE, SELFPAY ==
--- NOTE | 2025-02-13 11:15 | RT.EKG_ITS ---
APPROVED REPORT Exam: Resting ECG Reason for Exam: Syncope Patient Location: E HR:62 bpm ECG Measurements Heart Rate 62 AXIS WA 170 P 40 QRSd 96 QRS 8 QT 434 T 37 QTc 442 Conclusion Sinus rhythm...normal P axis, V-rate 60- 99 No Occlusion NH
[2025-02-13 11:27] VITALS: BP 160/56; PULSE 63; RESP 18; TEMP 36.8; O2SAT 96
--- NOTE | 2025-02-13 11:34 | W.ED.GENAD ---
Discharge Plan Disposition Patient Disposition: Home Discharge Details Clinical Impression: Complex laceration of face, Immunization, tetanus-diphtheria, Fracture of multiple teeth Primary Care Provider: Emile Ferrer ED Provider: Faisal Fonseca [facility] and New Rx's Prescriptions: New chlorhexidine gluconate [Peridex] 0.12 % mouthwash 15 ml mucous membrane BID Qty: 300 0RF Continued Aranesp (in polysorbate) 300 mcg/0.6 mL syringe 300 mcg IV Q4W Qty: 0.6 5RF calcitriol 0.5 mcg capsule 0.5 mcg PO DAILY losartan 50 mg tablet 50 mg PO DAILY atorvastatin 40 mg tablet 40 mg PO DAILY Qty: 100 3RF furosemide 40 mg tablet See Rx Instructions .ROUTE .COMPLEX Qty: 90 3RF Dose Instruction: TAKE 1 TABLET BY MOUTH DAILY Rx Instructions: TAKE 1 TABLET BY MOUTH DAILY doxazosin 4 mg tablet 12 mg PO QHS Qty: 270 3RF sevelamer carbonate 800 mg tablet 800 mg PO TID Rx Instructions: must administer with a meal/food carbamazepine [Tegretol] 200 mg tablet 200 mg PO BID Qty: 180 3RF glipizide 5 mg tablet extended release 24hr 5 mg PO BID Qty: 180 3RF carbamazepine 100 mg tablet,chewable 50 mg PO BID Qty: 90 4RF omeprazole 20 mg capsule,delayed release(DR/EC) See Rx Instructions .ROUTE .COMPLEX Qty: 90 3RF Dose Instruction: TAKE 1 CAPSULE BY MOUTH DAILY Rx Instructions: TAKE 1 CAPSULE BY MOUTH DAILY (DME) FreeStyle Lite Strips Strip See Rx Instructions .ROUTE .COMPLEX Qty: 200 3RF Dose Instruction: TEST IN THE MORNING DIRECTED Rx Instructions: TEST twice/day (DME) lancets [FreeStyle Lancets] 28 gauge misc 1 ea Intradermal DAILY Qty: 200 4RF Rx Instructions: test twice/day hydralazine 100 mg tablet 50 - 100 mg PO BID Qty: 225 2RF Rx Instructions: 01/31/2025 Dialysis has reduced hydralazine use to BID, discontinued midday dose: Also to take BP prior to each administration of this medication and to hold if systolic below 150. -hb sitagliptin phosphate 25 mg tablet 25 mg PO DAILY Qty: 90 3RF ascorbic acid (vitamin C) 1,000 mg tablet 1,000 mg PO DAILY sodium bicarbonate 650 mg tablet 1,300 mg PO BID Rx Instructions: per neph Discharge Instructions Additional Instructions: You were seen in the emergency department for your laceration. CAT scan showed no sign of any bleeding in your head. No sign of any neck fractures. You were seen in the emergency department for your lip laceration laceration which was closed with sutures that will need to be removed in 7 to 10 days. As we discussed, please keep your wound clean, dry and covered. Please do not soak in a tub, swim or engage in any activities which could introduce dirt into your wound. You may return to the emergency department, go to urgent care or go to your primary care provider in 7 to 10 days to have your stitches removed. As we discussed if you develop any foul-smelling drainage fevers streaking signs of infection or have any other concerns please return to the emergency department. For your pain please take medications as follows: 1. Take acetaminophen (Tylenol), 1,000 mg (two 500 mg tabs) every 6 hours Please go directly to your dentist at [facility]. Please use this oral rinse as directed. Discharge Data Discharge Date/Time-TO BE ENTERED AT DEPARTURE: 02/13/25 15:04 HPI General Date/Time Provider Initiated Documentation: 02/13/25 11:33. HPI Narrative: MDM Primary survey intact. Reassuring shock index. Secondary survey patient has an open through and through approximately 2 cm hemostatic right sided lower lip laceration that does not violate the vermilion border. Will update tetanus status. Given head strike and age will complete CT scan of head and neck. No chest strike and equal breath sounds without pneumothorax so I did not obtain chest x-ray. Pelvis stable and nontender to doubt pelvic fracture. Will obtain basic labs though suspect patient had syncopal episode secondary to hypotension given soft blood pressures and recent initiation of dialysis. No chest pain to suggest ACS. No shortness of breath to suggest PE. Did not obtain a D-dimer. No dysuria no frequency to suggest UTI. Right chest wall port nontender with no signs of infection. In the absence of malocclusion and mandibular tenderness I did not feel the patient required CT scan of his mandible. He does have multiple Marie 3 dental fractures so we will touch base with his dentist at [facility]. 12:21 PM Basic metabolic panel with normal reassuring potassium. No SATHYA. CBC shows slightly worsening normocytic anemia. No leukocytosis. No thrombocytopenia. 3:50 PM Patient was found to have extensive maxillary and mandibular dental lacerations Marie class I-III. I was in touch with patient's dentist from [facility], Dr. Dalal. He was amenable to seeing the patient in the clinic later today. As a result I did not want to delay the patient's transfer to the dentist so I did not cover exposed pulp with calcium hydroxide nor dental cement. Will also defer antibiotics to Dr. Dalal. I did prescribe chlorhexidine rinse. We discussed that patient should return if you develop streaking signs of infection fever or any foul-smelling drainage. He had no dysrhythmias in the ED on telemetry. His labs are reassuring. I encouraged him to follow-up with his ap processor concerning his episodes of hypotension. He is keeping a blood pressure journal. Diagnostic interpretations performed by me: Per my independent interpretation EKG shows: Narrow complex normal sinus rhythm at a rate of 62. Normal axis. Intervals within normal limits. No ST segment abnormalities. No T wave versions. No acute injury pattern. Appears similar to prior dated earlier this month. ]Medications: Acetaminophen HPI This is a patient with a history of dialysis presenting with a cut on his face. The patient is currently undergoing dialysis, with his most recent session being on 02/12/2025. He has been on dialysis for approximately 3 weeks. His blood pressure has been unstable, with episodes of both high and low readings. Last night, his blood pressure dropped to 112, which was also the reading this morning. Two weeks ago, it was recorded as 88. These fluctuations have been a cause for concern. His hydralazine medication was recently discontinued. The patient experienced a brief loss of consciousness today. He took his blood pressure medication and then went into the kitchen, where he leaned on the counter. Shortly after, he lost consciousness and hit his face. He regained consciousness within a few seconds. He reports no shortness of breath, chest pain, abdominal pain, nausea, or leg swelling prior to this episode. Currently, he reports feeling slightly unwell but is not experiencing any chest pain, abdominal pain, nausea, shortness of breath, or leg swelling. Exam General: Well-appearing in no acute distress speaking in complete sentences. Head: Normocephalic, atraumatic. Eye: Extraocular eye movements intact. No conjunctival injection. No scleral icterus. Ear, nose, mouth, throat: No hemotympanum bilaterally. No septal hematoma. Patient has an approximately 3 cm through and through lip laceration that does not violate the vermilion border. Normal voice, handling secretions normally. No malocclusion. Patient has Marie 3 dental fractures to teeth #5,6,7,8,9. He also has Marie 3 fractures to tooth #27, 26. 25, 24. Neck: Trachea midline. Cardiovascular: Well-perfused distal extremities. Respiratory: Nonlabored respiration. Gastrointestinal: Nondistended abdomen. Musculoskeletal: No edema. Moving all 4 extremities spontaneously. Skin: Normal for age and race, grossly normal temperature and turgor. No acute rash. Neurologic: Alert and appropriate, no apparent acute deficits. GCS 15. Psychiatric: Mood and manner are appropriate. Grooming and personal hygiene are appropriate. Related Data Home Medications ?Medication ?Instructions ?Recorded ?Confirmed darbepoetin tee in polysorbat 300 300 mcg (0.6 mL) IV Q4W #0.6 mL 06/28/23 02/13/25 mcg/0.6 mL in polysorbate injection syringe (Aranesp) sevelamer carbonate 800 mg tablet 800 mg PO TID 03/29/24 02/13/25 carbamazepine 100 mg chewable 50 mg (1/2 x 100 mg) PO BID #90 05/02/24 02/13/25 tablet tab-caps omeprazole 20 mg capsule,delayed See Rx Instructions .Route 05/03/24 02/13/25 release .COMPLEX #90 caps blood sugar diagnostic (FreeStyle #200 strips 06/30/24 01/28/25 Lite Strips) lancets 28 gauge (FreeStyle #200 ea 06/30/24 01/28/25 Lancets) atorvastatin 40 mg tablet 40 mg PO DAILY #100 tabs 07/03/24 02/13/25 calcitriol 0.5 mcg capsule 0.5 mcg PO DAILY 07/03/24 02/13/25 furosemide 40 mg tablet See Rx Instructions .Route 07/03/24 02/13/25 .COMPLEX #90 tabs losartan 50 mg tablet 50 mg PO DAILY 07/03/24 02/13/25 doxazosin 4 mg tablet 12 mg (3 x 4 mg) PO QHS #270 tabs 07/05/24 02/13/25 carbamazepine 200 mg tablet 200 mg PO BID #180 tabs 01/03/25 02/13/25 (Tegretol) glipizide 5 mg tablet, extended 5 mg PO BID #180 tabs 01/03/25 02/13/25 release 24 hr ascorbic acid (vitamin C) 1,000 mg 1,000 mg PO DAILY 01/28/25 02/13/25 tablet sodium bicarbonate 650 mg tablet 1,300 mg PO BID 01/28/25 02/13/25 hydralazine 100 mg tablet 50 - 100 mg (0.5 - 1 x 100 mg) PO 01/31/25 02/13/25 BID #225 tabs sitagliptin phosphate 25 mg tablet 25 mg PO DAILY #90 tabs 02/07/25 02/13/25 chlorhexidine gluconate 0.12 % 15 ml mucous membrane BID #300 mL 02/13/25 mouthwash (Peridex) Previous Rx's ?Medication ?Instructions ?Recorded darbepoetin tee in polysorbat 300 300 mcg (0.6 mL) IV Q4W #0.6 mL 06/28/23 mcg/0.6 mL in polysorbate injection syringe (Aranesp) carbamazepine 100 mg chewable 50 mg (1/2 x 100 mg) PO BID #90 05/02/24 tablet tab-caps omeprazole 20 mg capsule,delayed See Rx Instructions .Route 05/03/24 release .COMPLEX #90 caps blood sugar diagnostic (FreeStyle #200 strips 06/30/24 Lite Strips) lancets 28 gauge (FreeStyle #200 ea 06/30/24 Lancets) atorvastatin 40 mg tablet 40 mg PO DAILY #100 tabs 07/03/24 furosemide 40 mg tablet See Rx Instructions .Route 07/03/24 .COMPLEX #90 tabs doxazosin 4 mg tablet 12 mg (3 x 4 mg) PO QHS #270 tabs 07/05/24 carbamazepine 200 mg tablet 200 mg PO BID #180 tabs 01/03/25 (Tegretol) glipizide 5 mg tablet, extended 5 mg PO BID #180 tabs 01/03/25 release 24 hr hydralazine 100 mg tablet 50 - 100 mg (0.5 - 1 x 100 mg) PO 01/31/25 BID #225 tabs sitagliptin phosphate 25 mg tablet 25 mg PO DAILY #90 tabs 02/07/25 chlorhexidine gluconate 0.12 % 15 ml mucous membrane BID #300 mL 02/13/25 mouthwash (Peridex) Allergies Allergy/AdvReac Type Severity Reaction Status Date / Time dulaglutide (From [facility]) AdvReac Severe nausea/vomi Verified 01/28/25 19:13 ting General Stated Complaint: Dizzy/Sync DANNY: 2 Course Vital Signs Vital signs: Vital Signs Temperature 36.8 C 02/13/25 11:27 Pulse 63 02/13/25 11:27 Respiratory Rate 18 02/13/25 11:27 Blood Pressure 160/56 H 02/13/25 11:27 Pulse Oximetry 96 02/13/25 11:27 Temperature 36.8 C 02/13/25 11:27 Temperature Source Axillary 02/13/25 11:27 Pulse 63 02/13/25 11:27 Respiratory Rate 18 02/13/25 11:27 Blood Pressure 160/56 H 02/13/25 11:27 Blood Pressure Position Sitting 02/13/25 11:27 Pulse Oximetry 96 02/13/25 11:27 Oxygen Delivery Method Room Air 02/13/25 11:27 Oxygen Flow Rate 0 02/13/25 11:27 Procedure Laceration Laceration 1: Date of Procedure: 02/13/25 Time of procedure: 14:15 Provider that performed the procedure: Faisal Fonseca Patient Consented: Verbally Site: other (Mouth) Depth: [id number] Local anesthetic: Lidocaine 2%, with Epi and LET(lidocaine epinephrine tetracaine) Amount of anesthesia used (mL): 8 Pre-repair:: wound explored and irrigated extensively Skin layer closed with: nylon Suture size: 5-0 Number of sutures:: 5 Technique: simple, interrupted Muscle layer closed with: vicryl Suture Size: 5-0 Number of sutures:: 2 Technique: simple, interrupted Procedure Description/Note: Intraorally there were 2 lacerations. The lower laceration on the buccal mucosa on the right side of the patient's mandible was closed with 4, 5-0 Vicryl sutures. This communicated with the through and through lower lip laceration. The upper lip laceration just inferior to the edge of the lip on the buccal mucosa was closed with 4, 5-0 Vicryl sutures. PFSH All Active Problems (Updated 02/13/25 @ 14:39 by Faisal Fonseca MD) Fracture of multiple teeth (Acute) Immunization, tetanus-diphtheria (Acute) Complex laceration of face (Acute) Weakness (Acute) Onychodystrophy (Acute) Hearing loss (Acute) Controlled diabetes mellitus (Acute) Tubulovillous adenoma (Acute) De Quervain's tenosynovitis, right (Acute) Wrist swelling (Acute) Fatigue (Acute) Elevated C-reactive protein (CRP) (Acute) Arthralgia (Acute) Essential hypertension (Acute 07/31/13) Seizure disorder (Chronic) Pt. states he f/u with Dr. Herring hasn't had a seizure in 20+ years NPDR (nonproliferative diabetic retinopathy) (Acute ~11/08/18) 11/08/18 [facility]; MILD IN LEFT EYE-KB 11/24/20 [facility]; MILD B/L-KB Anemia (Chronic) Chronic, mild-likely associated which chronic kidney disease 08/2021, HCT=33.4 2020-mildly low iron levels Chewing tobacco nicotine dependence (Acute) Carotid stenosis, bilateral (Acute) 2020-modest stenosis bilaterally by ultrasound at [facility] Heart murmur (Acute) 10/2021-early systolic murmur Chronic kidney disease, stage 4 (severe) (Acute) 08/2021-Cr-2.5 Peptic ulcer disease (Chronic) Medical History Asthma BPH loc w urin obs/LUTS Fatty pancreas (07/04/15) Gout Hyperkalemia Hyperlipidemia Kidney stone recurrently on the left at least 4 times. 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 Dwight Garvin x7 08/09/14; DR. ROSARIO; TUBULAR ADENOMA X 2 Tubulovillous adenoma of colon (~03/2021) 04/13/21 Dr. Dwight Ramirez x3 [place] [facility] [place] H/O prostate biopsy Hx of carpal tunnel repair jonas Hx of prostatectomy Hx of surgical procedure Per pt. states he had some lymph node removed during his prostatectomy laminectomy Social History Smoking/Tobacco Use Status: Current every day Tobacco Type: smokeless tobacco Tobacco: How many years used: 50 Smokeless tobacco user: snuff and dissolvable tobacco Quit status: has quit before Smoking risk assessment performed?: Yes Alcohol Intake: never Drug use: Never Substance use type: does not use Details: chews tobacco daily Housing: house Current gender identity: male Do you feel safe at home: Yes Do you feel safe in your relationship?: Yes
--- NOTE | 2025-02-13 11:47 | DI.CT_ITS ---
Exam(s) CT HEAD CERVICAL SPINE WO EXAM: CT HEAD CERVICAL SPINE WO CLINICAL HISTORY: Fall head strike. TECHNIQUE: Imaging Protocol: Axial computed tomography images with coronal and sagittal reformatted images were created and reviewed COMPARISON: CT CT HEAD WO from 01/28/2025 FINDINGS: CT Head: Ventricles and Extra axial spaces: Normal in size and morphology for the patient's age. Hemorrhage: None. Cerebral parenchyma: There are subtle areas of decreased attenuation in the white matter suggesting chronic microvascular ischemic disease. There is no evidence of an acute territorial infarct or mass effect. Midline shift: None. Brainstem/Cerebellum: Normal. Calvarium: Normal. Visualized Paranasal sinuses/Mastoids: There is mild mucosal thickening in the left mid maxillary sinus. Soft Tissues: Unremarkable. CT Cervical Spine: Bones: No acute fracture or subluxation. There are age-appropriate degenerative changes in the cervical spine. Soft Tissues: Unremarkable. Lung Apices: Clear. IMPRESSION: 1. No acute intracranial process. 2. No acute fracture or subluxation in the cervical spine. RADIATION DOSE DELIVERED: 1,250.79mGy.cm Total DLP DATA REPOSITORY: All CT scans at this facility are submitted to the National Radiology Data Registry (NRDR) Dose Index Registry (DIR) with the [employer] (A[employer]). RADIATION OPTIMIZATION: All CT scans at this facility use at least one of these dose optimization techniques: automated exposure control; mA and/or kV adjustment per patient size (includes targeted exams where dose is matched to clinical indication); or iterative reconstruction.
[2025-02-13 12:04] LABS: Abs Immature Grans 0.03 10^3/uL (0.0-0.06); HCT 29.2 % (40.0-50.0); HGB 8.8 g/dL (13.5-17.5); Immature Grans % 0.4 %; MCH 27.5 pg (27.0-33.0); MCHC 30.1 % (32.0-36.0); MCV 91 fL (80-95); MPV 11.1 fL (8.0-11.0); Platelet Count 139 10^3/uL (130-400); RBC 3.20 10^6/uL (4.36-5.78); RDW 16.5 % (11.8-14.1); RDW-SD 55.8 fL; WBC 7.46 10^3/uL (4.4-10.8)
[2025-02-13] MEDS: Diph,Pertuss(Acell),Tet Vac/Pf 0.5 ML SYR IM (12:09)
[2025-02-13] MEDS: Lidocaine/Epinephri/Tetracaine Topical Gel 3 ML TP (12:11)
[2025-02-13] MEDS: Lidocaine 2% Multi-Dose W/EPI 1/100,000 20 ML VIAL IJ (12:11)
[2025-02-13] MEDS: ACETAMINOPHEN 1,000 MG/100 ML BAG 400 MG IVPB (12:11)
[2025-02-13 12:17] LABS: Anion Gap 8.8 mmol/L (3-11); BUN 39 mg/dL (7-18); CO2 32.2 mmol/L (21.0-32.0); Calcium 8.9 mg/dL (8.5-10.1); Chloride 103 mmol/L (98-107); Estimated GFR 10.85 (mL/min/1.73m2); Glucose 112 mg/dL (74-106); Potassium 3.9 mmol/L (3.5-5.1); Sodium 144 mmol/L (136-145)
[2025-02-13 12:35] VITALS: RESP 18
[2025-02-13] MEDS: oxyCODONE 5 MG TAB PO (14:38)
[2025-02-13 14:53] VITALS: BP 155/64; PULSE 63; RESP 18; TEMP 36.8; O2SAT 96
== END 2025-02-13 15:04 | disposition home or self-care (01) ==
PROVIDERS: Emergency Provider Emergency Medicine; PCP Family Medicine
DX: R55 Syncope and collapse (principal); S02.5XXA Fracture of tooth (traumatic), initial encounter for closed fracture; S01.511A Laceration without foreign body of lip, initial encounter; S01.512A Laceration without foreign body of oral cavity, initial encounter; E11.22 Type 2 diabetes mellitus with diabetic chronic kidney disease; I12.0 Hypertensive chronic kidney disease with stage 5 chronic kidney disease or end stage renal disease; N18.6 End stage renal disease; E78.5 Hyperlipidemia, unspecified; E11.3292 Type 2 diabetes mellitus with mild nonproliferative diabetic retinopathy without macular edema, left eye; Z99.2 Dependence on renal dialysis; Z79.84 Long term (current) use of oral hypoglycemic drugs; Z23 Encounter for immunization; W01.198A Fall on same level from slipping, tripping and stumbling with subsequent striking against other object, initial encounter; Y93.89 Activity, other specified; Y92.010 Kitchen of single-family (private) house as the place of occurrence of the external cause
CPT/HCPCS: 12011; 36415; 80048; 82962; 90471; 90715; 93005; 96365; 99285; 70450; 72125; 85025; 93010; 99284; J0131; J2004

== ENCOUNTER 2025-02-22 08:55 | Emergency (ER) | payer MEDICARE, SELFPAY ==
[2025-02-22 09:21] VITALS: BP 166/70; PULSE 65; RESP 16; TEMP 36.4; O2SAT 95
--- NOTE | 2025-02-22 10:00 | W.ED.GENAD ---
Discharge Plan Disposition Patient Disposition: Home Discharge Details Clinical Impression: Complex laceration of face Primary Care Provider: Emile Ferrer ED Provider: Lbiby Westbrook Home Meds and New Rx's Prescriptions: No Action Aranesp (in polysorbate) 300 mcg/0.6 mL syringe 300 mcg IV Q4W Qty: 0.6 5RF calcitriol 0.5 mcg capsule 0.5 mcg PO DAILY losartan 50 mg tablet 50 mg PO DAILY atorvastatin 40 mg tablet 40 mg PO DAILY Qty: 100 3RF furosemide 40 mg tablet See Rx Instructions .ROUTE .COMPLEX Qty: 90 3RF Dose Instruction: TAKE 1 TABLET BY MOUTH DAILY Rx Instructions: TAKE 1 TABLET BY MOUTH DAILY doxazosin 4 mg tablet 12 mg PO QHS Qty: 270 3RF sevelamer carbonate 800 mg tablet 800 mg PO TID Rx Instructions: must administer with a meal/food carbamazepine [Tegretol] 200 mg tablet 200 mg PO BID Qty: 180 3RF glipizide 5 mg tablet extended release 24hr 5 mg PO BID Qty: 180 3RF carbamazepine 100 mg tablet,chewable 50 mg PO BID Qty: 90 4RF omeprazole 20 mg capsule,delayed release(DR/EC) See Rx Instructions .ROUTE .COMPLEX Qty: 90 3RF Dose Instruction: TAKE 1 CAPSULE BY MOUTH DAILY Rx Instructions: TAKE 1 CAPSULE BY MOUTH DAILY (DME) FreeStyle Lite Strips Strip See Rx Instructions .ROUTE .COMPLEX Qty: 200 3RF Dose Instruction: TEST IN THE MORNING DIRECTED Rx Instructions: TEST twice/day (DME) lancets [FreeStyle Lancets] 28 gauge misc 1 ea Intradermal DAILY Qty: 200 4RF Rx Instructions: test twice/day hydralazine 100 mg tablet 50 - 100 mg PO BID Qty: 225 2RF Rx Instructions: 01/31/2025 Dialysis has reduced hydralazine use to BID, discontinued midday dose: Also to take BP prior to each administration of this medication and to hold if systolic below 150. -hb sitagliptin phosphate 25 mg tablet 25 mg PO DAILY Qty: 90 3RF ascorbic acid (vitamin C) 1,000 mg tablet 1,000 mg PO DAILY sodium bicarbonate 650 mg tablet 1,300 mg PO BID Rx Instructions: per neph chlorhexidine gluconate [Peridex] 0.12 % mouthwash 15 ml mucous membrane BID Qty: 300 0RF Discharge Instructions Additional Instructions: Your laceration is healing well without signs of infection. Please follow-up with dental as scheduled. Keep your wounds clean and dry, wash daily with gentle soap and water. Please do not pick at the scabs on your face, as they are natural part of healing. Keep an eye out for signs of infection such as redness, swelling, pus drainage, increasing pain, foul odor. If he does need these, please seek care immediately. Referrals: Emile Ferrer MD [Primary Care Provider, Medicine] Discharge Data Discharge Date/Time-TO BE ENTERED AT DEPARTURE: 02/22/25 10:27 HPI General Date/Time Provider Initiated Documentation: 02/22/25 09:21. HPI Narrative: Sanford is a 75-year-old male presenting to the ED today for suture removal, accompanied by his daughter. Reports that he sustained lacerations to his right lower lip when he lost consciousness in his kitchen 1 week ago, fell against the countertop, and hit his head on the floor. Was evaluated in the ED that day, had 5 sutures placed on the skin, as well as 8 dissolvable sutures inside his mouth.. He received immediate dental care on the same day and has a follow-up appointment on 03/04/2025. Denies signs of infection such as drainage, redness, swelling, pain. Able to eat and drink without difficulty, but has issues with teeth due to dental fractures. No pain or complications related to the laceration. Related Data Home Medications ?Medication ?Instructions ?Recorded ?Confirmed darbepoetin tee in polysorbat 300 300 mcg (0.6 mL) IV Q4W #0.6 mL 06/28/23 02/22/25 mcg/0.6 mL in polysorbate injection syringe (Aranesp) sevelamer carbonate 800 mg tablet 800 mg PO TID 03/29/24 02/22/25 carbamazepine 100 mg chewable 50 mg (1/2 x 100 mg) PO BID #90 05/02/24 02/22/25 tablet tab-caps omeprazole 20 mg capsule,delayed See Rx Instructions .Route 05/03/24 02/22/25 release .COMPLEX #90 caps blood sugar diagnostic (FreeStyle #200 strips 06/30/24 02/22/25 Lite Strips) lancets 28 gauge (FreeStyle #200 ea 06/30/24 02/22/25 Lancets) atorvastatin 40 mg tablet 40 mg PO DAILY #100 tabs 07/03/24 02/22/25 calcitriol 0.5 mcg capsule 0.5 mcg PO DAILY 07/03/24 02/22/25 furosemide 40 mg tablet See Rx Instructions .Route 07/03/24 02/22/25 .COMPLEX #90 tabs losartan 50 mg tablet 50 mg PO DAILY 07/03/24 02/22/25 doxazosin 4 mg tablet 12 mg (3 x 4 mg) PO QHS #270 tabs 07/05/24 02/22/25 carbamazepine 200 mg tablet 200 mg PO BID #180 tabs 01/03/25 02/22/25 (Tegretol) glipizide 5 mg tablet, extended 5 mg PO BID #180 tabs 01/03/25 02/22/25 release 24 hr ascorbic acid (vitamin C) 1,000 mg 1,000 mg PO DAILY 01/28/25 02/22/25 tablet sodium bicarbonate 650 mg tablet 1,300 mg PO BID 01/28/25 02/22/25 hydralazine 100 mg tablet 50 - 100 mg (0.5 - 1 x 100 mg) PO 01/31/25 02/22/25 BID #225 tabs sitagliptin phosphate 25 mg tablet 25 mg PO DAILY #90 tabs 02/07/25 02/22/25 chlorhexidine gluconate 0.12 % 15 ml mucous membrane BID #300 mL 02/13/25 02/22/25 mouthwash (Peridex) Previous Rx's ?Medication ?Instructions ?Recorded darbepoetin tee in polysorbat 300 300 mcg (0.6 mL) IV Q4W #0.6 mL 06/28/23 mcg/0.6 mL in polysorbate injection syringe (Aranesp) carbamazepine 100 mg chewable 50 mg (1/2 x 100 mg) PO BID #90 05/02/24 tablet tab-caps omeprazole 20 mg capsule,delayed See Rx Instructions .Route 05/03/24 release .COMPLEX #90 caps blood sugar diagnostic (FreeStyle #200 strips 06/30/24 Lite Strips) lancets 28 gauge (FreeStyle #200 ea 06/30/24 Lancets) atorvastatin 40 mg tablet 40 mg PO DAILY #100 tabs 07/03/24 furosemide 40 mg tablet See Rx Instructions .Route 07/03/24 .COMPLEX #90 tabs doxazosin 4 mg tablet 12 mg (3 x 4 mg) PO QHS #270 tabs 07/05/24 carbamazepine 200 mg tablet 200 mg PO BID #180 tabs 01/03/25 (Tegretol) glipizide 5 mg tablet, extended 5 mg PO BID #180 tabs 01/03/25 release 24 hr hydralazine 100 mg tablet 50 - 100 mg (0.5 - 1 x 100 mg) PO 01/31/25 BID #225 tabs sitagliptin phosphate 25 mg tablet 25 mg PO DAILY #90 tabs 02/07/25 chlorhexidine gluconate 0.12 % 15 ml mucous membrane BID #300 mL 02/13/25 mouthwash (Peridex) Allergies Allergy/AdvReac Type Severity Reaction Status Date / Time dulaglutide (From [facility]) AdvReac Severe nausea/vomi Verified 02/22/25 09:23 ting General Stated Complaint: SutureRem DANNY: 4 Exam Narrative Exam Narrative: General Appearance: Normal. Patient is alert and oriented, no acute distress Vital signs: Within normal limits. HEENT: Healing laceration just inferior to R lower lip with blue prolene sutures, clear sutures are dissolvable. Skin: Warm and dry, no rash. Psychiatric: Normal. Other observations: Test Case Developer: Daughter present. Course Vital Signs Vital signs: Vital Signs Temperature 36.4 C 02/22/25 09:21 Pulse 65 02/22/25 09:21 Respiratory Rate 16 02/22/25 09:21 Blood Pressure 166/70 H 02/22/25 09:21 Pulse Oximetry 95 02/22/25 09:21 Temperature 36.4 C 02/22/25 09:21 Temperature Source Oral 02/22/25 09:21 Pulse 65 02/22/25 09:21 Respiratory Rate 16 02/22/25 09:21 Blood Pressure 166/70 H 02/22/25 09:21 Pulse Oximetry 95 02/22/25 09:21 Oxygen Delivery Method Room Air 02/22/25 09:21 Oxygen Flow Rate 0 02/22/25 09:21 Pain Level 0 02/22/25 09:21 Medical Decision Making Initial Assessment: 75-year-old male with oral lacerations requiring suture removal. No drainage, redness, or pain. Able to eat and drink, but has issues with teeth due to associated dental fractures. ED Course: - Blue sutures removed, clear dissolvable sutures left in place. Final Assessment: 5 external sutures removed successfully with no complications. Patient has follow-up appointment with dentist scheduled for management of dental fractures. Clinical Impression: - Healing laceration, no sign of infection Disposition: - Discharge home - Follow-Up: Dentist appointment on 03/04/2025 Reviewed discharge instruction with patient, including continued wound care, importance of follow-up with PCP/dental, and red flags indicating need for return to emergency care MDM Components Evaluation: - Number of Differential Diagnoses or Management Options: Oral lacerations - Amount and Complexity of Data Reviewed: None - Risk of Complication and Morbidity or Mortality: Low risk based on current condition and treatment plan. Patient consented to the use of LISA PFSH All Active Problems (Updated 02/22/25 @ 10:04 by Libby Lynn) Fracture of multiple teeth (Acute) Immunization, tetanus-diphtheria (Acute) Complex laceration of face (Acute) Weakness (Acute) Onychodystrophy (Acute) Hearing loss (Acute) Controlled diabetes mellitus (Acute) Tubulovillous adenoma (Acute) De Quervain's tenosynovitis, right (Acute) Wrist swelling (Acute) Fatigue (Acute) Elevated C-reactive protein (CRP) (Acute) Arthralgia (Acute) Essential hypertension (Acute 07/31/13) Seizure disorder (Chronic) Pt. states he f/u with Dr. Herring hasn't had a seizure in 20+ years NPDR (nonproliferative diabetic retinopathy) (Acute ~11/08/18) 11/08/18 [facility]; MILD IN LEFT EYE-KB 11/24/20 [facility]; MILD B/L-KB Anemia (Chronic) Chronic, mild-likely associated which chronic kidney disease 08/2021, HCT=33.4 2020-mildly low iron levels Chewing tobacco nicotine dependence (Acute) Carotid stenosis, bilateral (Acute) 2020-modest stenosis bilaterally by ultrasound at [facility] Heart murmur (Acute) 10/2021-early systolic murmur Chronic kidney disease, stage 4 (severe) (Acute) 08/2021-Cr-2.5 Peptic ulcer disease (Chronic) Medical History Asthma BPH loc w urin obs/LUTS Fatty pancreas (07/04/15) Gout Hyperkalemia Hyperlipidemia Kidney stone recurrently on the left at least 4 times. 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 Dwight Garvin x7 08/09/14; DR. ROSARIO; TUBULAR ADENOMA X 2 Tubulovillous adenoma of colon (~03/2021) 04/13/21 Dr. Dwight Ramirez x3 [place] [facility] [place] H/O prostate biopsy Hx of carpal tunnel repair jonas Hx of prostatectomy Hx of surgical procedure Per pt. states he had some lymph node removed during his prostatectomy laminectomy Social History Smoking/Tobacco Use Status: Current every day Tobacco Type: smokeless tobacco Tobacco: How many years used: 50 Smokeless tobacco user: snuff and dissolvable tobacco Quit status: has quit before Smoking risk assessment performed?: Yes Alcohol Intake: never Drug use: Never Substance use type: does not use Details: chews tobacco daily Housing: house Current gender identity: male Do you feel safe at home: Yes Do you feel safe in your relationship?: Yes
== END 2025-02-22 10:27 | disposition home or self-care (01) ==
PROVIDERS: Emergency Provider Nurse Practitioner Family; PCP Family Medicine
DX: S01.511D Laceration without foreign body of lip, subsequent encounter (principal); X58.XXXD Exposure to other specified factors, subsequent encounter